=== PATIENT | female | born 1950 | race African-American/Black ===

== ENCOUNTER 2018-12-20 17:57 | Inpatient (IN) | payer MEDICARE, MEDICAID ==
[~2018-12-20] VITALS: Ht 170.2 cm; Wt 72.6 kg
[~2018-12-20 17:57] MED LIST: AMLO10TA80 PO; ASPI-1160 PO; ATEN-42 PO; CLOP75TA33 PO; FERR-35 PO; FURO40TA5 PO; GABA-529 PO; HYDR-4001 PO; LEVE500T78 PO; LISI40TA4 PO; OMEP20CA10 PO
[2018-12-20] MEDS ORDERED: SODIUM CHLORIDE 0.9% 1,000 ML IV ONE (18:21)
[2018-12-20] MEDS ORDERED: ASPIRIN 81MG TABLET PO ONE (18:30)
[2018-12-20 19:06] LABS: BASOPHILS % 0.4 % (0.0-2.0); EOSINOPHILS % 1.2 % (0.0-5.0); HEMATOCRIT. 34.1 % (36.0-48.0); HEMOGLOBIN. 11.5 g/dL (12.0-16.0); LYMPHOCYTES % 28.3 % (20.0-50.0); MEAN CORPUSCULAR HEMOGLOBIN 32.4 pg (28.0-32.0); MEAN PLATELET VOLUME 7.8 fl (7.4-10.4); MONOCYTES % 10.9 % (2.0-8.0); NEUTROPHILS % 59.2 % (40.0-76.0); PLATELET 274 x1000/uL (130-400); RED BLOOD CELL COUNT 3.55 mill/uL (4.2-5.4); RED CELL DISTRIBUTION WIDTH 14.5 % (11.6-14.6)
[2018-12-20 19:13] LABS: CHLORIDE 103 mEq/L (98-107)
[2018-12-20 19:18] LABS: D-DIMER 0.37 mg/L FEU (<0.50); INR 1.1; PARTIAL THROMBOPLASTIN TIME 32.3 sec (23.4-31.0); PROTHROMBIN TIME 10.9 sec (9.1-11.1)
[2018-12-20] MEDS ORDERED: DOCUSATE SODIUM 100MG CAPSULE PO PRN (20:45)
[2018-12-20] MEDS ORDERED: IPRATROPIUM/ALBUTEROL 0.5-3(2.5)MG/3ML NEB INH PRN (20:45)
[2018-12-20] MEDS ORDERED: ONDANSETRON HCL 4MG/2ML INJ IV PRN (20:45)
[2018-12-20] MEDS ORDERED: MAGNESIUM/ALUMINUM HYDROXIDE/SIMETHICONE 30ML UDC PO PRN (20:45)
[2018-12-20] MEDS ORDERED: ACETAMINOPHEN 325MG TABLET PO PRN (20:45)
[2018-12-20] MEDS ORDERED: CLONIDINE 0.1MG TABLET PO PRN (20:45)
[2018-12-20] MEDS ORDERED: HYDROMORPHONE HCL/PF 2MG/ML CPJ IV PRN (21:15)
[2018-12-20] MEDS: HYDROCODONE/ACETAMINOPHEN 5/325MG TABLET PO PRN (21:30)
[2018-12-20 23:21] LABS: CREATINE KINASE 82 IU/L (26-192)
[2018-12-21 01:47] VITALS: BP 96/56
[2018-12-21 04:00] VITALS: BP 94/53
[2018-12-21 07:43] LABS: CHLORIDE 109 mEq/L (98-107)
[2018-12-21 07:55] LABS: LDL CHOLESTEROL 59 mg/dL (5-100)
[2018-12-21 07:57] LABS: HDL CHOLESTEROL 50 mg/dL (40-59)
[2018-12-21 08:00] VITALS: BP 135/62
[2018-12-21 08:10] LABS: CREATINE KINASE 80 IU/L (26-192)
[2018-12-21 08:12] LABS: CREATINE KINASE MB FRACTION < 1.0 ng/mL (0.5-3.6)
[2018-12-21] MEDS: ENOXAPARIN 40MG/0.4ML SYR SUBCUT SCH (09:00)
[2018-12-21 09:57] LABS: BASOPHILS % 0.3 % (0.0-2.0); EOSINOPHILS % 1.5 % (0.0-5.0); HEMATOCRIT. 29.1 % (36.0-48.0); HEMOGLOBIN. 9.9 g/dL (12.0-16.0); MEAN CORPUSCULAR HEMOGLOBIN 32.8 pg (28.0-32.0); MEAN CORPUSCULAR VOLUME 96.6 fL (81.0-99.0); MEAN PLATELET VOLUME 8.5 fl (7.4-10.4); MONOCYTES % 12.5 % (2.0-8.0); NEUTROPHILS % 53.7 % (40.0-76.0); PLATELET 229 x1000/uL (130-400); RED BLOOD CELL COUNT 3.01 mill/uL (4.2-5.4); RED CELL DISTRIBUTION WIDTH 14.1 % (11.6-14.6)
[2018-12-21] MEDS: HYDROCODONE/ACETAMINOPHEN 5/325MG TABLET PO PRN ×3 (11:01→20:37)
[2018-12-21 12:00] VITALS: BP 171/55
[2018-12-21] MEDS ORDERED: POTASSIUM CHLORIDE 20MEQ/PACKET PO SCH (14:15)
[2018-12-21] MEDS: FUROSEMIDE 40MG/4ML VIAL IV SCH ×2 (14:28→20:40)
[2018-12-21] MEDS: LISINOPRIL 20MG TABLET PO SCH (14:28)
[2018-12-21 16:00] VITALS: BP 113/70
[2018-12-21 20:01] VITALS: BP 120/60
[2018-12-22 00:08] VITALS: BP 130/81
[2018-12-22 04:00] VITALS: BP 146/82
[2018-12-22 06:17] LABS: BASOPHILS % 0.8 % (0.0-2.0); EOSINOPHILS % 1.4 % (0.0-5.0); HEMATOCRIT. 31.4 % (36.0-48.0); HEMOGLOBIN. 10.7 g/dL (12.0-16.0); LYMPHOCYTES % 33.8 % (20.0-50.0); MEAN CORPUSCULAR HEMOGLOBIN 32.5 pg (28.0-32.0); MEAN CORPUSCULAR VOLUME 95.3 fL (81.0-99.0); MEAN PLATELET VOLUME 8.4 fl (7.4-10.4); MONOCYTES % 13.7 % (2.0-8.0); NEUTROPHILS % 50.3 % (40.0-76.0); PLATELET 251 x1000/uL (130-400); RED BLOOD CELL COUNT 3.29 mill/uL (4.2-5.4); RED CELL DISTRIBUTION WIDTH 13.9 % (11.6-14.6)
[2018-12-22 07:38] LABS: CHLORIDE 108 mEq/L (98-107)
[2018-12-22 07:58] LABS: LDL CHOLESTEROL 60 mg/dL (5-100)
[2018-12-22 07:59] LABS: CREATINE KINASE 75 IU/L (26-192); CREATINE KINASE MB FRACTION < 1.0 ng/mL (0.5-3.6); HDL CHOLESTEROL 49 mg/dL (40-59)
[2018-12-22 08:00] VITALS: BP 119/84
[2018-12-22] MEDS ORDERED: AMLODIPINE 10MG TABLET PO SCH (09:00)
[2018-12-22] MEDS: FUROSEMIDE 40MG/4ML VIAL IV SCH (09:39)
[2018-12-22] MEDS: LISINOPRIL 20MG TABLET PO SCH (09:39)
[2018-12-22] MEDS: ENOXAPARIN 40MG/0.4ML SYR SUBCUT SCH (09:39)
[2018-12-22] MEDS: HYDROCODONE/ACETAMINOPHEN 5/325MG TABLET PO PRN (10:01)
[2018-12-22 12:00] VITALS: BP 102/69
[2018-12-22 14:54] VITALS: BP 102/69
== END 2018-12-22 15:30 | disposition home health service (06) | DRG 203 ==
LOC: ER 17:57 → 6WST 20:02 → SUPCPDRO 20:38 → ENRESERV 22:29 → UNDODISIN 12-21 18:50
PROVIDERS: ADMIT Hospitalist; ATTEND Hospitalist
DX: M94.0 Chondrocostal junction syndrome [Tietze] (principal); I95.9 Hypotension, unspecified; G62.9 Polyneuropathy, unspecified; R07.89 Other chest pain; I25.10 Atherosclerotic heart disease of native coronary artery without angina pectoris; I35.0 Nonrheumatic aortic (valve) stenosis; B19.20 Unspecified viral hepatitis C without hepatic coma; I10 Essential (primary) hypertension; D64.9 Anemia, unspecified; G40.909 Epilepsy, unspecified, not intractable, without status epilepticus; Z86.73 Personal history of transient ischemic attack (TIA), and cerebral infarction without residual deficits; Z95.5 Presence of coronary angioplasty implant and graft; Z79.899 Other long term (current) drug therapy; Z79.82 Long term (current) use of aspirin
CPT/HCPCS: 36415; 71045; 73030; 80061; 82550; 82553; 83735; 83880; 84443; 84484; 85379; 93005; 93306; 93970; 96360; 99285; J1650; J1940; J7030

== ENCOUNTER 2019-04-09 18:29 | Inpatient (IN) | payer MEDICARE, MEDICAID ==
[~2019-04-09] VITALS: Ht 167.6 cm; Wt 68.0 kg
[~2019-04-09 18:29] MED LIST changes: -LEVE500T78 PO; +LEVE500T98 PO; -OMEP20CA10 PO; +OMEP20CA5 PO
[2019-04-09] MEDS ORDERED: ONDANSETRON HCL 4MG/2ML INJ IV STA (19:01)
[2019-04-09] MEDS ORDERED: MORPHINE SULFATE 4 MG/ML CPJ (NOT FOR IM USE) IV STA (19:01)
[2019-04-09] MEDS ORDERED: ASPIRIN 81MG TABLET PO ONE (19:15)
[2019-04-09 20:03] LABS: CLARITY URINE CLOUDY (CLEAR); COLOR URINE YELLOW (YELLOW); KETONES URINE NEGATIVE (NEGATIVE); LEUKOCYTE ESTERASE URINE 3+ (NEGATIVE); NITRITE URINE POSITIVE (NEGATIVE); OCCULT BLOOD URINE TRACE (NEGATIVE); PH URINE 6.5 (4.5-8.0); PROTEIN URINE NEGATIVE (NEGATIVE); SPECIFIC GRAVITY URINE 1.019 (1.005-1.030)
[2019-04-09 20:08] LABS: BASOPHILS % 0.8 % (0.0-2.0); HEMATOCRIT. 28.4 % (36.0-48.0); HEMOGLOBIN. 9.2 g/dL (12.0-16.0); LYMPHOCYTES % 34.8 % (20.0-50.0); MEAN CORPUSCULAR HEMOGLOBIN 27.8 pg (28.0-32.0); MEAN CORPUSCULAR VOLUME 85.5 fL (81.0-99.0); MEAN PLATELET VOLUME 8.6 fl (7.4-10.4); MONOCYTES % 11.3 % (2.0-8.0); NEUTROPHILS % 49.1 % (40.0-76.0); PLATELET 214 x1000/uL (130-400); RED BLOOD CELL COUNT 3.32 mill/uL (4.2-5.4); RED CELL DISTRIBUTION WIDTH 15.2 % (11.6-14.6)
[2019-04-09 20:13] LABS: CHLORIDE 108 mEq/L (98-107)
[2019-04-09 20:18] LABS: D-DIMER 0.73 mg/L FEU (<0.50); PARTIAL THROMBOPLASTIN TIME 30.3 sec (23.4-31.0); PROTHROMBIN TIME 10.7 sec (9.6-11.0)
[2019-04-09] MEDS ORDERED: CEFTRIAXONE 1 G PREMIX 50 ML IV ONE (20:30)
[2019-04-09] MEDS ORDERED: MORPHINE SULFATE 4 MG/ML CPJ (NOT FOR IM USE) IV ONE (23:45)
[2019-04-09] MEDS ORDERED: ONDANSETRON HCL 4MG/2ML INJ IV ONE (23:45)
[2019-04-10] MEDS ORDERED: DOCUSATE SODIUM 100MG CAPSULE PO PRN (01:15)
[2019-04-10] MEDS ORDERED: CLONIDINE 0.1MG TABLET PO PRN (01:15)
[2019-04-10] MEDS ORDERED: IPRATROPIUM/ALBUTEROL 0.5-3(2.5)MG/3ML NEB INH PRN (01:15)
[2019-04-10] MEDS ORDERED: ACETAMINOPHEN 325MG TABLET PO PRN (01:15)
[2019-04-10] MEDS ORDERED: ONDANSETRON HCL 4MG/2ML INJ IV PRN (01:15)
[2019-04-10] MEDS ORDERED: MAGNESIUM/ALUMINUM HYDROXIDE/SIMETHICONE 30ML UDC PO PRN (01:15)
[2019-04-10 01:29] VITALS: BP 133/78
[2019-04-10 04:00] VITALS: BP 138/83
[2019-04-10 06:00] LABS: CHLORIDE 111 mEq/L (98-107)
[2019-04-10 06:08] LABS: CREATINE KINASE 69 IU/L (26-192)
[2019-04-10 06:10] LABS: CREATINE KINASE MB FRACTION < 1.0 ng/mL (0.5-3.6)
[2019-04-10 06:29] LABS: BASOPHILS % 1.2 % (0.0-2.0); EOSINOPHILS % 5.6 % (0.0-5.0); HEMATOCRIT. 26.7 % (36.0-48.0); HEMOGLOBIN. 8.6 g/dL (12.0-16.0); LYMPHOCYTES % 35.5 % (20.0-50.0); MEAN CORPUSCULAR HEMOGLOBIN 27.9 pg (28.0-32.0); MEAN CORPUSCULAR VOLUME 86.6 fL (81.0-99.0); MEAN PLATELET VOLUME 9.1 fl (7.4-10.4); MONOCYTES % 11.7 % (2.0-8.0); PLATELET 202 x1000/uL (130-400); RED BLOOD CELL COUNT 3.08 mill/uL (4.2-5.4); RED CELL DISTRIBUTION WIDTH 15.4 % (11.6-14.6)
[2019-04-10 08:00] VITALS: BP 149/80
[2019-04-10] MEDS: ENOXAPARIN 40MG/0.4ML SYR SUBCUT SCH (09:08)
[2019-04-10] MEDS: HYDROCODONE/ACETAMINOPHEN 5/325MG TABLET PO PRN ×2 (09:09→20:38)
[2019-04-10] MEDS ORDERED: MORPHINE SULFATE 2 MG/ML CPJ (NOT FOR IM USE) IV PRN (09:15)
[2019-04-10 12:00] VITALS: BP 119/60
[2019-04-10 15:07] LABS: *AMPHETAMINES SCREEN URINE NEGATIVE (NEGATIVE); *BARBITURATES SCREEN URINE NEGATIVE (NEGATIVE); *BENZODIAZEPINES SCREEN URINE NEGATIVE (NEGATIVE); *COCAINE SCREEN URINE NEGATIVE (NEGATIVE); METHADONE URINE SCREEN NEGATIVE (NEGATIVE); OPIATES URINE SCREEN PRESUMTIVE POSITIVE (NEGATIVE)
[2019-04-10 15:08] LABS: CANNABINOID URINE SCREEN NEGATIVE (NEGATIVE); PHENCYCLIDINE URINE SCREEN NEGATIVE (NEGATIVE)
[2019-04-10] MEDS: ASPIRIN 81MG EC TABLET PO SCH ×2 (15:15→16:49)
[2019-04-10 16:00] VITALS: BP 127/65
[2019-04-10 16:23] LABS: CREATINE KINASE 62 IU/L (26-192)
[2019-04-10 16:25] LABS: CREATINE KINASE MB FRACTION < 1.0 ng/mL (0.5-3.6)
[2019-04-10] MEDS: MORPHINE SULFATE 4 MG/ML CPJ (NOT FOR IM USE) IV PRN ×2 (16:48→22:56)
[2019-04-10] MEDS: CLOPIDOGREL 75MG TABLET PO SCH (16:49)
[2019-04-10 17:21] LABS: TOTAL IRON BINDING CAPACITY 573 ug/dL (250-450)
[2019-04-10] MEDS ORDERED: CEFTRIAXONE 1 G PREMIX 50 ML IV SCH ×2 (18:00→21:00)
[2019-04-10 20:00] VITALS: BP 143/74
[2019-04-10] MEDS: LISINOPRIL 20MG TABLET PO SCH (20:36)
[2019-04-11] VITALS: BP 134/62
[2019-04-11 04:00] VITALS: BP 147/68
[2019-04-11] MEDS: MORPHINE SULFATE 4 MG/ML CPJ (NOT FOR IM USE) IV PRN ×2 (06:25→13:27)
[2019-04-11 07:02] LABS: BASOPHILS % 1.5 % (0.0-2.0); HEMOGLOBIN. 8.9 g/dL (12.0-16.0); LYMPHOCYTES % 32.3 % (20.0-50.0); MEAN CORPUSCULAR HEMOGLOBIN 26.8 pg (28.0-32.0); MEAN CORPUSCULAR VOLUME 84.7 fL (81.0-99.0); MEAN PLATELET VOLUME 8.9 fl (7.4-10.4); MONOCYTES % 14.4 % (2.0-8.0); NEUTROPHILS % 46.8 % (40.0-76.0); PLATELET 213 x1000/uL (130-400); RED CELL DISTRIBUTION WIDTH 15.3 % (11.6-14.6)
[2019-04-11 07:05] LABS: CHLORIDE 110 mEq/L (98-107)
[2019-04-11 07:11] LABS: LDL CHOLESTEROL 65 mg/dL (5-100)
[2019-04-11 07:13] LABS: HDL CHOLESTEROL 36 mg/dL (40-59)
[2019-04-11 08:00] VITALS: BP 167/89
[2019-04-11] MEDS ORDERED: AMLODIPINE 10MG TABLET PO SCH (09:00)
[2019-04-11] MEDS ORDERED: ATENOLOL 50 MG TABLET PO SCH (09:00)
[2019-04-11] MEDS: ASPIRIN 81MG EC TABLET PO SCH (09:13)
[2019-04-11] MEDS: CLOPIDOGREL 75MG TABLET PO SCH (09:13)
[2019-04-11] MEDS: LISINOPRIL 20MG TABLET PO SCH (09:14)
[2019-04-11] MEDS: ENOXAPARIN 40MG/0.4ML SYR SUBCUT SCH (09:14)
[2019-04-11] MEDS ORDERED: ATENOLOL 25MG TABLET PO SCH (09:30)
[2019-04-11 12:00] VITALS: BP 149/86
[2019-04-11 16:00] VITALS: BP 129/73
[2019-04-11] MEDS ORDERED: ATEN-42 PO (16:39)
[2019-04-11] MEDS ORDERED: NITR100C MT (16:39)
[2019-04-11 17:44] VITALS: BP 129/73
== END 2019-04-11 18:18 | disposition home or self-care (01) | DRG 463 ==
LOC: ER 18:29 → 7WST 21:46 → EDBEDREQ 21:52 → EDBEDREQTM 21:52 → ENRESERV 04-10 00:27
PROVIDERS: ADMIT Internal Medicine; ATTEND Internal Medicine
DX: N39.0 Urinary tract infection, site not specified (principal); E87.8 Other disorders of electrolyte and fluid balance, not elsewhere classified; I69.354 Hemiplegia and hemiparesis following cerebral infarction affecting left non-dominant side; R07.9 Chest pain, unspecified; B19.20 Unspecified viral hepatitis C without hepatic coma; I11.9 Hypertensive heart disease without heart failure; B96.20 Unspecified Escherichia coli [E. coli] as the cause of diseases classified elsewhere; G89.29 Other chronic pain; M25.512 Pain in left shoulder; D64.9 Anemia, unspecified; D50.9 Iron deficiency anemia, unspecified; E78.5 Hyperlipidemia, unspecified; E87.6 Hypokalemia; G40.909 Epilepsy, unspecified, not intractable, without status epilepticus; G62.9 Polyneuropathy, unspecified; I25.10 Atherosclerotic heart disease of native coronary artery without angina pectoris; Z82.49 Family history of ischemic heart disease and other diseases of the circulatory system; Z95.0 Presence of cardiac pacemaker; Z95.2 Presence of prosthetic heart valve; Z79.899 Other long term (current) drug therapy; Z79.82 Long term (current) use of aspirin
CPT/HCPCS: 36415; 71045; 78582; 80048; 80061; 80305; 82550; 82553; 82728; 83540; 83550; 83605; 83735; 83880; 84443; 84484; 85379; 87077; 87186; 93005; 93306; 93970; 96365; 96375; 99285; A9558; J0696; J1650; J2270; J2405

== ENCOUNTER 2019-07-02 19:03 | Inpatient (IN) | payer MEDICARE, MEDICAID ==
[~2019-07-02] VITALS: Ht 170.2 cm; Wt 69.9 kg
[~2019-07-02 19:03] MED LIST changes: +NITR100C MT
[2019-07-02 19:54] LABS: BASOPHILS % 0.7 % (0.0-2.0); EOSINOPHILS % 2.4 % (0.0-5.0); HEMATOCRIT. 31.7 % (36.0-48.0); HEMOGLOBIN. 10.1 g/dL (12.0-16.0); LYMPHOCYTES % 35.3 % (20.0-50.0); MEAN CORPUSCULAR HEMOGLOBIN 27.2 pg (28.0-32.0); MEAN CORPUSCULAR VOLUME 85.3 fL (81.0-99.0); MEAN PLATELET VOLUME 8.7 fl (7.4-10.4); MONOCYTES % 10.9 % (2.0-8.0); NEUTROPHILS % 50.7 % (40.0-76.0); PLATELET 281 x1000/uL (130-400); RED BLOOD CELL COUNT 3.72 mill/uL (4.2-5.4); RED CELL DISTRIBUTION WIDTH 18.8 % (11.6-14.6)
[2019-07-02 19:58] LABS: CHLORIDE 103 mEq/L (98-107)
[2019-07-02] MEDS ORDERED: KETOROLAC 15MG/ML VIAL IV ONE (21:30)
[2019-07-02] MEDS ORDERED: POTASSIUM CHLORIDE 20MEQ TABLET SR PO SCH (21:30)
[2019-07-02] MEDS ORDERED: MORPHINE SULFATE 4 MG/ML CPJ (NOT FOR IM USE) IV ONE (21:30)
[2019-07-02] MEDS ORDERED: ASPIRIN 325MG TABLET PO ONE (22:45)
[2019-07-02 23:45] VITALS: BP 140/61
[2019-07-02 23:50] VITALS: BP 140/61
[2019-07-03] MEDS: MORPHINE SULFATE 2 MG/ML CPJ (NOT FOR IM USE) IV PRN ×5 (01:34→20:52)
[2019-07-03 04:00] VITALS: BP 124/66
[2019-07-03] MEDS ORDERED: HYDROCODONE/ACETAMINOPHEN 5/325MG TABLET PO PRN (05:15)
[2019-07-03] MEDS: OMEPRAZOLE 20MG CAPSULE EXTENDED RELEASE PO SCH (06:27)
[2019-07-03 08:00] VITALS: BP 115/67
[2019-07-03] MEDS: FERROUS SULFATE 325MG TABLET PO SCH ×3 (08:03→17:31)
[2019-07-03] MEDS: GABAPENTIN 100MG CAPSULE PO SCH (08:25)
[2019-07-03] MEDS: CLOPIDOGREL 75MG TABLET PO SCH (08:25)
[2019-07-03] MEDS: ASPIRIN 81MG TABLET PO SCH (08:25)
[2019-07-03] MEDS: ENOXAPARIN 40MG/0.4ML SYR SUBCUT SCH (08:25)
[2019-07-03] MEDS: FUROSEMIDE 40MG TABLET PO SCH ×2 (08:25→21:19)
[2019-07-03] MEDS: LEVETIRACETAM 500MG TABLET PO SCH ×2 (08:26→21:19)
[2019-07-03] MEDS: LISINOPRIL 40MG TABLET PO SCH (08:26)
[2019-07-03] MEDS ORDERED: AMLODIPINE 10MG TABLET PO SCH (09:00)
[2019-07-03 09:12] LABS: *AMPHETAMINES SCREEN URINE NEGATIVE (NEGATIVE); *BARBITURATES SCREEN URINE NEGATIVE (NEGATIVE)
[2019-07-03 09:13] LABS: *BENZODIAZEPINES SCREEN URINE NEGATIVE (NEGATIVE); *COCAINE SCREEN URINE NEGATIVE (NEGATIVE); METHADONE URINE SCREEN NEGATIVE (NEGATIVE)
[2019-07-03 09:14] LABS: CANNABINOID URINE SCREEN NEGATIVE (NEGATIVE); OPIATES URINE SCREEN PRESUMTIVE POSITIVE (NEGATIVE); PHENCYCLIDINE URINE SCREEN NEGATIVE (NEGATIVE)
[2019-07-03 10:32] LABS: BASOPHILS % 0.7 % (0.0-2.0); EOSINOPHILS % 2.1 % (0.0-5.0); HEMATOCRIT. 29.3 % (36.0-48.0); HEMOGLOBIN. 9.2 g/dL (12.0-16.0); LYMPHOCYTES % 35.7 % (20.0-50.0); MEAN CORPUSCULAR HEMOGLOBIN 27.4 pg (28.0-32.0); MEAN CORPUSCULAR VOLUME 87.3 fL (81.0-99.0); MEAN PLATELET VOLUME 8.3 fl (7.4-10.4); MONOCYTES % 10.6 % (2.0-8.0); NEUTROPHILS % 50.9 % (40.0-76.0); PLATELET 235 x1000/uL (130-400); RED BLOOD CELL COUNT 3.35 mill/uL (4.2-5.4); RED CELL DISTRIBUTION WIDTH 18.4 % (11.6-14.6)
[2019-07-03 10:44] LABS: CHLORIDE 108 mEq/L (98-107)
[2019-07-03 11:02] LABS: CREATINE KINASE 62 IU/L (26-192); LDL CHOLESTEROL 63 mg/dL (5-100)
[2019-07-03 11:05] LABS: HDL CHOLESTEROL 34 mg/dL (40-59)
[2019-07-03 11:09] LABS: CREATINE KINASE MB FRACTION 1.7 ng/mL (0.5-3.6)
[2019-07-03 12:00] VITALS: BP 111/60
[2019-07-03] MEDS ORDERED: POTASSIUM CHLORIDE 20MEQ/PACKET PO NR (13:00)
[2019-07-03 15:57] LABS: TOTAL IRON BINDING CAPACITY 523 ug/dL (250-450)
[2019-07-03 15:59] LABS: CREATINE KINASE 63 IU/L (26-192)
[2019-07-03 16:00] VITALS: BP 97/54
[2019-07-03 16:00] LABS: CREATINE KINASE MB FRACTION 1.3 ng/mL (0.5-3.6)
[2019-07-03 20:51] VITALS: BP 104/61
[2019-07-03] MEDS ORDERED: ATORVASTATIN CALCIUM 40MG TABLET PO SCH (21:00)
[2019-07-03] MEDS: METOPROLOL TARTRATE 25MG TABLET PO SCH (21:00)
[2019-07-04] VITALS: BP 103/50
[2019-07-04] MEDS: MORPHINE SULFATE 2 MG/ML CPJ (NOT FOR IM USE) IV PRN ×2 (01:20→05:57)
[2019-07-04 04:00] VITALS: BP 110/74
[2019-07-04] MEDS: FERROUS SULFATE 325MG TABLET PO SCH (06:15)
[2019-07-04] MEDS: OMEPRAZOLE 20MG CAPSULE EXTENDED RELEASE PO SCH (06:15)
[2019-07-04 08:00] VITALS: BP 109/68
[2019-07-04] MEDS: METOPROLOL TARTRATE 25MG TABLET PO SCH (08:22)
[2019-07-04] MEDS: CLOPIDOGREL 75MG TABLET PO SCH (08:24)
[2019-07-04] MEDS: ENOXAPARIN 40MG/0.4ML SYR SUBCUT SCH (08:24)
[2019-07-04] MEDS: LISINOPRIL 40MG TABLET PO SCH (08:24)
[2019-07-04] MEDS: LEVETIRACETAM 500MG TABLET PO SCH (08:25)
[2019-07-04] MEDS: GABAPENTIN 100MG CAPSULE PO SCH (08:25)
[2019-07-04] MEDS: FUROSEMIDE 40MG TABLET PO SCH (08:25)
[2019-07-04] MEDS: ASPIRIN 81MG TABLET PO SCH (08:25)
[2019-07-04] MEDS ORDERED: AMLODIPINE 5MG TABLET PO SCH (09:00)
[2019-07-04] MEDS ORDERED: POTASSIUM CHLORIDE 20MEQ TABLET SR PO NR (11:45)
[2019-07-04] MEDS ORDERED: MAGNESIUM 2 G PREMIX 50 ML IV NR (13:00)
== END 2019-07-04 10:10 | disposition left against medical advice (07) | DRG 207 ==
LOC: ER 19:03 → 5WST 22:40 → EDBEDREQTM 22:43 → EDBEDREQ 22:43 → ENRESERV 23:14
PROVIDERS: ADMIT Internal Medicine; ATTEND Internal Medicine
DX: R00.2 Palpitations (principal); I27.20 Pulmonary hypertension, unspecified; I69.354 Hemiplegia and hemiparesis following cerebral infarction affecting left non-dominant side; J44.9 Chronic obstructive pulmonary disease, unspecified; B19.20 Unspecified viral hepatitis C without hepatic coma; K74.60 Unspecified cirrhosis of liver; D64.9 Anemia, unspecified; E87.6 Hypokalemia; Z96.641 Presence of right artificial hip joint; R73.9 Hyperglycemia, unspecified; Z53.29 Procedure and treatment not carried out because of patient's decision for other reasons; I10 Essential (primary) hypertension; I25.10 Atherosclerotic heart disease of native coronary artery without angina pectoris; Z87.891 Personal history of nicotine dependence; Z95.5 Presence of coronary angioplasty implant and graft; Z95.810 Presence of automatic (implantable) cardiac defibrillator; Z79.899 Other long term (current) drug therapy; Z79.82 Long term (current) use of aspirin; Z98.891 History of uterine scar from previous surgery
CPT/HCPCS: 36415; 71045; 73502; 80048; 80061; 80305; 82550; 82553; 82728; 83036; 83540; 83550; 83735; 83880; 84443; 84484; 93005; 93306; 93970; 96374; 96375; 99285; J1650; J1885; J2270; J3475

== ENCOUNTER 2021-08-04 13:16 | Inpatient (IN) | payer MEDICARE, OTHER ==
[~2021-08-04] VITALS: Ht 170.2 cm; Wt 84.8 kg
[~2021-08-04 13:16] MED LIST changes: +LISI40TA13 PO; -LISI40TA4 PO; +OMEP20CA14 PO; -OMEP20CA5 PO
[2021-08-04 14:43] LABS: BG BASE EXCESS -2.6 mmol/L (-2.0-2.0); BG CARBOXYHEMOGLOBIN 0.4 % (0.5-1.5); BG DEOXYHEMOGLOBIN 2.8 % (0.0-5.0); BG FRACTION INSPIRED OXYGEN 21; BG HCO3 ACT 21.1 mmol/L (22.0-26.0); BG METHEMOGLOBIN 0.2 % (0.0-1.5); BG OXYGEN SATURATION 97.2 % (92.0-98.5); BG OXYHEMOGLOBIN 96.6 % (94.0-97.0); BG PH 7.424 (7.350-7.450); BG PO2 99.5 mmHg (75.0-100.0); BG SAMPLE SITE LEFT RADIAL; BG TOTAL HEMOGLOBIN 10.9 g/dL (12.0-18.0); BG VENT MODE ROOM AIR
[2021-08-04] MEDS ORDERED: MORPHINE SULFATE 4 MG/ML CPJ (NOT FOR IM USE) IV NR (14:45)
[2021-08-04 14:48] LABS: BASOPHILS % 0.7 % (0.0-2.0); EOSINOPHILS % 1.2 % (0.0-5.0); HEMATOCRIT. 30.1 % (36.0-48.0); HEMOGLOBIN. 9.5 g/dL (12.0-16.0); LYMPHOCYTES % 21.5 % (20.0-50.0); MEAN CORPUSCULAR HEMOGLOBIN 26.2 pg (28.0-32.0); MEAN CORPUSCULAR VOLUME 83.2 fL (81.0-99.0); MEAN PLATELET VOLUME 7.8 fl (7.4-10.4); MONOCYTES % 6.2 % (2.0-8.0); NEUTROPHILS % 70.4 % (40.0-76.0); PLATELET 293 x1000/uL (130-400); RED BLOOD CELL COUNT 3.62 mill/uL (4.2-5.4); RED CELL DISTRIBUTION WIDTH 17.8 % (11.6-14.6)
[2021-08-04 14:51] LABS: CHLORIDE 111 mEq/L (98-107)
[2021-08-04] MEDS ORDERED: DIPHENHYDRAMINE 50MG/ML VIAL IV PRN (20:15)
[2021-08-04] MEDS ORDERED: MAGNESIUM/ALUMINUM HYDROXIDE/SIMETHICONE 30ML UDC PO PRN (20:15)
[2021-08-04] MEDS ORDERED: HYDRALAZINE 20MG/ML VIAL IV PRN (20:15)
[2021-08-04] MEDS ORDERED: CLONIDINE 0.1MG TABLET PO PRN (20:15)
[2021-08-04] MEDS ORDERED: GUAIFENESIN 200MG/10ML SUGAR FREE UDC PO PRN (20:15)
[2021-08-04] MEDS ORDERED: IPRATROPIUM/ALBUTEROL 0.5-3(2.5)MG/3ML NEB HHN PRN (20:15)
[2021-08-04] MEDS ORDERED: DOCUSATE SODIUM 100MG CAPSULE PO PRN (20:15)
[2021-08-04] MEDS ORDERED: ONDANSETRON HCL 4MG/2ML INJ IV PRN (20:15)
[2021-08-04] MEDS ORDERED: ACETAMINOPHEN 325MG TABLET PO PRN (20:15)
[2021-08-04] MEDS ORDERED: NALOXONE HCL 0.4MG/ML VIAL IV PRN (20:30)
[2021-08-04] MEDS ORDERED: ENOXAPARIN 40MG/0.4ML SYR SUBCUT SCH (21:00)
[2021-08-04] MEDS: MORPHINE SULFATE 2 MG/ML CPJ (NOT FOR IM USE) IV PRN (21:03)
[2021-08-04] MEDS: SODIUM CHLORIDE 0.9% INJ 3ML FLUSH IVF SCH (21:47)
[2021-08-04 23:42] LABS: CLARITY URINE CLEAR (CLEAR); COLOR URINE YELLOW (YELLOW); KETONES URINE NEGATIVE (NEGATIVE); LEUKOCYTE ESTERASE URINE 3+ (NEGATIVE); NITRITE URINE NEGATIVE (NEGATIVE); OCCULT BLOOD URINE NEGATIVE (NEGATIVE); PH URINE 7.5 (4.5-8.0); PROTEIN URINE TRACE (NEGATIVE); SPECIFIC GRAVITY URINE 1.014 (1.005-1.030)
[2021-08-05 00:07] LABS: *AMPHETAMINES SCREEN URINE NEGATIVE (NEGATIVE); *BARBITURATES SCREEN URINE NEGATIVE (NEGATIVE); *BENZODIAZEPINES SCREEN URINE PRESUMTIVE POSITIVE (NEGATIVE); *COCAINE SCREEN URINE NEGATIVE (NEGATIVE)
[2021-08-05 00:08] LABS: CANNABINOID URINE SCREEN NEGATIVE (NEGATIVE); METHADONE URINE SCREEN NEGATIVE (NEGATIVE); OPIATES URINE SCREEN PRESUMTIVE POSITIVE (NEGATIVE); PHENCYCLIDINE URINE SCREEN NEGATIVE (NEGATIVE)
[2021-08-05] MEDS: MORPHINE SULFATE 2 MG/ML CPJ (NOT FOR IM USE) IV PRN ×4 (03:04→23:54)
[2021-08-05] MEDS: SODIUM CHLORIDE 0.9% INJ 3ML FLUSH IVF SCH ×3 (06:55→23:54)
[2021-08-05 08:00] VITALS: BP 144/98
[2021-08-05 09:25] LABS: BASOPHILS % 0.6 % (0.0-2.0); CHLORIDE 111 mEq/L (98-107); EOSINOPHILS % 1.9 % (0.0-5.0); HEMATOCRIT. 30.8 % (36.0-48.0); HEMOGLOBIN. 9.7 g/dL (12.0-16.0); LYMPHOCYTES % 24.9 % (20.0-50.0); MEAN CORPUSCULAR HEMOGLOBIN 26.5 pg (28.0-32.0); MEAN CORPUSCULAR VOLUME 83.8 fL (81.0-99.0); MEAN PLATELET VOLUME 7.8 fl (7.4-10.4); MONOCYTES % 7.8 % (2.0-8.0); NEUTROPHILS % 64.8 % (40.0-76.0); PLATELET 295 x1000/uL (130-400); RED BLOOD CELL COUNT 3.68 mill/uL (4.2-5.4); RED CELL DISTRIBUTION WIDTH 18.3 % (11.6-14.6)
[2021-08-05 09:36] LABS: CREATINE KINASE 67 IU/L (26-192)
[2021-08-05 09:39] LABS: CREATINE KINASE MB FRACTION 2.3 ng/mL (0.5-3.6)
[2021-08-05 10:00] VITALS: BP 144/98
[2021-08-05 11:31] VITALS: BP 153/97
[2021-08-05 11:32] VITALS: BP 144/97
[2021-08-05] MEDS: FERROUS SULFATE 325MG TABLET PO SCH ×2 (14:09→16:48)
[2021-08-05] MEDS: AMLODIPINE 10MG TABLET PO SCH (14:10)
[2021-08-05] MEDS: HYDROCODONE/ACETAMINOPHEN 5/325MG TABLET PO PRN (14:10)
[2021-08-05] MEDS: GABAPENTIN 100MG CAPSULE PO SCH (14:10)
[2021-08-05] MEDS: OMEPRAZOLE 20MG CAPSULE EXTENDED RELEASE PO SCH (14:11)
[2021-08-05] MEDS: NITROFURANTOIN 100MG M/M CAPSULE PO SCH ×2 (14:11→21:13)
[2021-08-05] MEDS: ASPIRIN 81MG EC TABLET PO SCH (14:11)
[2021-08-05] MEDS: CLOPIDOGREL 75MG TABLET PO SCH (14:11)
[2021-08-05] MEDS: LISINOPRIL 40MG TABLET PO SCH (14:12)
[2021-08-05 16:00] VITALS: BP 120/80
[2021-08-05] MEDS: ATENOLOL 25MG TABLET PO SCH (16:48)
[2021-08-05 20:00] VITALS: BP 166/91
[2021-08-05] MEDS: LEVETIRACETAM 500MG TABLET PO SCH (21:14)
[2021-08-06] MEDS: SODIUM CHLORIDE 0.9% INJ 3ML FLUSH IVF SCH ×3 (06:30→21:00)
[2021-08-06] MEDS: MORPHINE SULFATE 2 MG/ML CPJ (NOT FOR IM USE) IV PRN ×4 (06:35→21:00)
[2021-08-06 08:00] VITALS: BP 114/81
[2021-08-06 08:53] LABS: BASOPHILS % 0.7 % (0.0-2.0); EOSINOPHILS % 1.8 % (0.0-5.0); HEMATOCRIT. 30.1 % (36.0-48.0); HEMOGLOBIN. 9.5 g/dL (12.0-16.0); LYMPHOCYTES % 22.9 % (20.0-50.0); MEAN CORPUSCULAR HEMOGLOBIN 26.4 pg (28.0-32.0); MEAN CORPUSCULAR VOLUME 83.5 fL (81.0-99.0); MEAN PLATELET VOLUME 7.8 fl (7.4-10.4); NEUTROPHILS % 65.6 % (40.0-76.0); PLATELET 309 x1000/uL (130-400); RED CELL DISTRIBUTION WIDTH 18.2 % (11.6-14.6)
[2021-08-06 08:55] LABS: CHLORIDE 112 mEq/L (98-107)
[2021-08-06] MEDS: LISINOPRIL 40MG TABLET PO SCH (09:00)
[2021-08-06] MEDS: OMEPRAZOLE 20MG CAPSULE EXTENDED RELEASE PO SCH (09:17)
[2021-08-06] MEDS: FERROUS SULFATE 325MG TABLET PO SCH ×3 (09:17→17:24)
[2021-08-06] MEDS: GABAPENTIN 100MG CAPSULE PO SCH (09:17)
[2021-08-06] MEDS: ATENOLOL 25MG TABLET PO SCH (09:17)
[2021-08-06] MEDS: NITROFURANTOIN 100MG M/M CAPSULE PO SCH (09:17)
[2021-08-06] MEDS: ASPIRIN 81MG EC TABLET PO SCH (09:18)
[2021-08-06] MEDS: AMLODIPINE 10MG TABLET PO SCH (09:18)
[2021-08-06] MEDS: CLOPIDOGREL 75MG TABLET PO SCH (09:18)
[2021-08-06] MEDS: LEVETIRACETAM 500MG TABLET PO SCH ×2 (09:20→20:59)
[2021-08-06 12:00] VITALS: BP 131/65
[2021-08-06] MEDS ORDERED: CEFTRIAXONE 1 G PREMIX 50 ML IV SCH (12:15)
[2021-08-06] MEDS: HYDROCODONE/ACETAMINOPHEN 5/325MG TABLET PO PRN (12:34)
[2021-08-06] MEDS: CEFTRIAXONE 1,000 MG in DEXTROSE 5% WATER 50 ML IV SCH (14:10)
[2021-08-06 16:00] VITALS: BP 127/76
[2021-08-06 20:00] VITALS: BP 140/78
[2021-08-06] MEDS: FAMOTIDINE 20MG TABLET PO SCH (20:59)
[2021-08-06] MEDS: LORAZEPAM 2MG/ML CPJ IV PRN (21:59)
[2021-08-07 04:00] VITALS: BP 127/62
[2021-08-07] MEDS: LORAZEPAM 2MG/ML CPJ IV PRN ×3 (04:20→20:41)
[2021-08-07] MEDS: SODIUM CHLORIDE 0.9% INJ 3ML FLUSH IVF SCH ×3 (05:54→22:00)
[2021-08-07 06:06] LABS: BASOPHILS % 0.6 % (0.0-2.0); EOSINOPHILS % 2.2 % (0.0-5.0); HEMATOCRIT. 32.2 % (36.0-48.0); HEMOGLOBIN. 10.2 g/dL (12.0-16.0); LYMPHOCYTES % 22.1 % (20.0-50.0); MEAN CORPUSCULAR HEMOGLOBIN 26.6 pg (28.0-32.0); MEAN CORPUSCULAR VOLUME 83.7 fL (81.0-99.0); MEAN PLATELET VOLUME 8.1 fl (7.4-10.4); MONOCYTES % 8.3 % (2.0-8.0); NEUTROPHILS % 66.8 % (40.0-76.0); PLATELET 300 x1000/uL (130-400); RED BLOOD CELL COUNT 3.85 mill/uL (4.2-5.4); RED CELL DISTRIBUTION WIDTH 18.2 % (11.6-14.6)
[2021-08-07 06:32] LABS: CHLORIDE 110 mEq/L (98-107)
[2021-08-07] MEDS: FERROUS SULFATE 325MG TABLET PO SCH ×3 (07:50→16:43)
[2021-08-07 08:00] VITALS: BP 137/68
[2021-08-07] MEDS: LISINOPRIL 40MG TABLET PO SCH (09:00)
[2021-08-07] MEDS: FAMOTIDINE 20MG TABLET PO SCH ×2 (10:15→20:41)
[2021-08-07] MEDS: ATENOLOL 25MG TABLET PO SCH (10:15)
[2021-08-07] MEDS: CLOPIDOGREL 75MG TABLET PO SCH (10:15)
[2021-08-07] MEDS: GABAPENTIN 100MG CAPSULE PO SCH (10:15)
[2021-08-07] MEDS: AMLODIPINE 10MG TABLET PO SCH (10:15)
[2021-08-07] MEDS: MORPHINE SULFATE 2 MG/ML CPJ (NOT FOR IM USE) IV PRN ×2 (10:16→14:50)
[2021-08-07] MEDS: ASPIRIN 81MG EC TABLET PO SCH (10:16)
[2021-08-07] MEDS: LEVETIRACETAM 500MG TABLET PO SCH ×2 (10:16→20:41)
[2021-08-07 12:28] VITALS: BP 123/56
[2021-08-07] MEDS: CEFTRIAXONE 1,000 MG in DEXTROSE 5% WATER 50 ML IV SCH (14:57)
[2021-08-07 16:00] VITALS: BP 137/67
[2021-08-07] MEDS: CEFAZOLIN 1000MG PREMIX 50 ML IV SCH (17:47)
[2021-08-07] MEDS: HYDROCODONE/ACETAMINOPHEN 5/325MG TABLET PO PRN (19:00)
[2021-08-07 20:00] VITALS: BP 125/64
[2021-08-08] VITALS: BP 158/82
[2021-08-08] MEDS: MORPHINE SULFATE 2 MG/ML CPJ (NOT FOR IM USE) IV PRN ×2 (00:36→08:58)
[2021-08-08 04:00] VITALS: BP 119/61
[2021-08-08] MEDS: CEFAZOLIN 1000MG PREMIX 50 ML IV SCH (04:29)
[2021-08-08] MEDS: HYDROCODONE/ACETAMINOPHEN 5/325MG TABLET PO PRN ×2 (05:00→13:58)
[2021-08-08] MEDS: SODIUM CHLORIDE 0.9% INJ 3ML FLUSH IVF SCH ×2 (06:00→13:53)
[2021-08-08] MEDS: FERROUS SULFATE 325MG TABLET PO SCH ×2 (07:50→12:50)
[2021-08-08 08:00] VITALS: BP 136/82
[2021-08-08] MEDS: LISINOPRIL 40MG TABLET PO SCH (08:55)
[2021-08-08] MEDS: FAMOTIDINE 20MG TABLET PO SCH (08:56)
[2021-08-08] MEDS: CLOPIDOGREL 75MG TABLET PO SCH (08:56)
[2021-08-08] MEDS: ASPIRIN 81MG EC TABLET PO SCH (08:56)
[2021-08-08] MEDS: GABAPENTIN 100MG CAPSULE PO SCH (08:56)
[2021-08-08] MEDS: ATENOLOL 25MG TABLET PO SCH (08:57)
[2021-08-08] MEDS: LEVETIRACETAM 500MG TABLET PO SCH (08:57)
[2021-08-08] MEDS: AMLODIPINE 10MG TABLET PO SCH (08:58)
[2021-08-08] MEDS: LORAZEPAM 2MG/ML CPJ IV PRN (09:00)
[2021-08-08 12:00] VITALS: BP 143/85
[2021-08-08] MEDS ORDERED: INFLUENZA VACCINE 05/PF 0.5 ML SYRINGE IM ONE (14:30)
[2021-08-08 15:59] VITALS: BP 143/85
== END 2021-08-08 16:20 | disposition home or self-care (01) | DRG 203 ==
LOC: ER 13:16 → MICUSO 19:19 → EDBEDREQTM 19:28 → EDBEDREQ 19:28 → EDBEDREQTM 20:33 → EDBEDREQ 20:33 → 6WST 08-05 07:21
PROVIDERS: ADMIT Internal Medicine; ATTEND Internal Medicine
DX: M94.0 Chondrocostal junction syndrome [Tietze] (principal); I69.354 Hemiplegia and hemiparesis following cerebral infarction affecting left non-dominant side; I24.8 Other forms of acute ischemic heart disease; I50.22 Chronic systolic (congestive) heart failure; I11.0 Hypertensive heart disease with heart failure; N39.0 Urinary tract infection, site not specified; R07.89 Other chest pain; I25.10 Atherosclerotic heart disease of native coronary artery without angina pectoris; G89.4 Chronic pain syndrome; Z96.649 Presence of unspecified artificial hip joint; M25.519 Pain in unspecified shoulder; Z95.0 Presence of cardiac pacemaker; Z79.82 Long term (current) use of aspirin; Z79.899 Other long term (current) drug therapy; Z98.891 History of uterine scar from previous surgery
CPT/HCPCS: 36415; 36600; 71045; 80048; 80053; 80305; 81003; 82375; 82550; 82553; 82805; 83605; 83735; 83880; 84443; 84484; 85025; 87077; 87186; 90686; 93005; 93306; 93970; 99285; J0690; J0696; J1650; J2060; J2270; J7060

== ENCOUNTER 2021-08-27 19:45 | Inpatient (IN) | payer MEDICARE, OTHER ==
[~2021-08-27] VITALS: Ht 170.2 cm; Wt 80.3 kg
[~2021-08-27 19:45] MED LIST changes: -NITR100C MT
[2021-08-27 20:03] VITALS: BP 151/88
[2021-08-27 20:15] VITALS: BP 161/84
[2021-08-27] MEDS ORDERED: IPRATROPIUM/ALBUTEROL 0.5-3(2.5)MG/3ML NEB HHN PRN (20:15)
[2021-08-27] MEDS ORDERED: ONDANSETRON HCL 4MG/2ML INJ IV PRN (20:15)
[2021-08-27 20:41] LABS: HEMATOCRIT 25.2 % (36.0-48.0); MEAN CORPUSCULAR HEMOGLOBIN 27.1 pg (28.0-32.0); MEAN CORPUSCULAR VOLUME 85.2 fL (81.0-99.0); PLATELET 216 x1000/uL (130-400); RED BLOOD CELL COUNT 2.95 mill/uL (4.2-5.4); RED CELL DISTRIBUTION WIDTH 18.5 % (11.6-14.6)
[2021-08-27 20:46] LABS: CHLORIDE 113 mEq/L (98-107)
[2021-08-27 20:49] LABS: INR 1.1; PROTHROMBIN TIME 11.4 sec (9.6-11.0)
[2021-08-27] MEDS: LEVETIRACETAM 500MG TABLET PO SCH (21:00)
[2021-08-27] MEDS: MORPHINE SULFATE 2 MG/ML CPJ (NOT FOR IM USE) IV PRN (21:00)
[2021-08-27] MEDS: TEMAZEPAM 15MG CAPSULE PO PRN (21:07)
[2021-08-27 22:00] VITALS: BP 140/66
[2021-08-27] MEDS ORDERED: NITROGLYCERIN OINT 1GM/INCH UDPKT TD NR (23:15)
[2021-08-27] MEDS: HYDROCODONE/ACETAMINOPHEN 5/325MG TABLET PO PRN (23:26)
[2021-08-27] MEDS: CLONIDINE 0.1MG TABLET PO PRN (23:38)
[2021-08-28] VITALS (43 sets, daily range): BP systolic 1–171; BP diastolic 0–96
[2021-08-28] MEDS: PANTOPRAZOLE 40MG DR TABLET PO SCH (06:15)
[2021-08-28] MEDS: MORPHINE SULFATE 2 MG/ML CPJ (NOT FOR IM USE) IV PRN ×3 (06:35→18:48)
[2021-08-28] MEDS ORDERED: HEPARIN SODIUM 1,000 UNIT/1ML VIAL IV ONE (08:06)
[2021-08-28] MEDS ORDERED: NITROGLYCERIN 50MCG/ML 10ML VIAL (CATH LAB) IV ONE (08:06)
[2021-08-28] MEDS ORDERED: NICARDIPINE 100MCG/ML 10ML VIAL (CATH LAB) IV ONE (08:06)
[2021-08-28] MEDS: LEVETIRACETAM 500MG TABLET PO SCH ×2 (08:20→21:18)
[2021-08-28] MEDS: AMLODIPINE 5MG TABLET PO SCH (08:20)
[2021-08-28] MEDS: ASPIRIN 81MG TABLET PO SCH (08:20)
[2021-08-28] MEDS ORDERED: LIDOCAINE HCL 1% 10 MG/ML 10ML VIAL ONE (08:41)
[2021-08-28] MEDS ORDERED: IODIXANOL 320MG/ML 100 ML BOTTLE IV ONE ×3 (08:41→12:41)
[2021-08-28] MEDS ORDERED: VERAPAMIL HCL 2.5 MG/1 ML 2ML VIAL IV ONE (08:41)
[2021-08-28] MEDS ORDERED: MIDAZOLAM HCL 2 MG/2 ML VIAL ONE ×7 (09:22→14:21)
[2021-08-28] MEDS ORDERED: FENTANYL CITRATE/PF 50MCG/ML 2ML VIAL ONE ×5 (09:22→14:21)
[2021-08-28] MEDS ORDERED: DIPHENHYDRAMINE 50MG/ML VIAL ONE (09:34)
[2021-08-28] MEDS ORDERED: IOHEXOL-300 100 ML BOTTLE ONE (10:22)
[2021-08-28] MEDS ORDERED: HEPARIN 1000 UNITS/ML 10ML ONE (12:28)
[2021-08-28] MEDS ORDERED: METOPROLOL TARTRATE 5MG/5ML VIAL IV ONE (13:13)
[2021-08-28] MEDS ORDERED: INSULIN REGULAR (DRIP) 100 UNITS in SODIUM CHLORIDE 0.9% 99 ML IV NR (13:30)
[2021-08-28] MEDS ORDERED: NOREPINEPHRINE 8 MG in DEXT 5% WATER 242 ML IV NR (13:30)
[2021-08-28] MEDS ORDERED: DEL NIDO ELECTROLYTE-S(PH 7.4) 1,000 ML IV NR ×2 (13:30)
[2021-08-28] MEDS ORDERED: PAPAVERINE HCL 180MG in SODIUM CHLORIDE 0.9% 24ML IV NR (13:30)
[2021-08-28] MEDS ORDERED: AMINOCAPROIC ACID 5,000 MG in SODIUM CHLORIDE 0.9% 230 ML IV NR (13:30)
[2021-08-28] MEDS ORDERED: CEFAZOLIN 2,000 MG in DEXT 5% WATER 100 ML IV NR (13:30)
[2021-08-28] MEDS ORDERED: EPINEPHRINE 5 MG in DEXT 5% WATER 245 ML IV NR (13:30)
[2021-08-28] MEDS ORDERED: ATROPINE SULFATE 1MG/10ML SYR IV PRN (15:00)
[2021-08-28] MEDS ORDERED: ACETAMINOPHEN 325MG TABLET PO PRN (15:00)
[2021-08-28] MEDS ORDERED: NALOXONE HCL 0.4MG/ML VIAL IV PRN (15:15)
[2021-08-28] MEDS ORDERED: HEPARIN 5000 UNITS/ML VIAL IV SCH (15:15)
[2021-08-28] MEDS ORDERED: HEPARIN 25,000 UNITS PREMIX 250 ML IV PRN (15:15)
[2021-08-28] MEDS ORDERED: HEPARIN 5000 UNITS/ML VIAL IV PRN ×2 (15:15)
[2021-08-28] MEDS ORDERED: NITROGLYCERIN 50MG PREMIX 250 ML IV ONE (15:39)
[2021-08-28] MEDS: SODIUM CHLORIDE 0.45% 1,000 ML IV SCH (15:48)
[2021-08-28] MEDS: NITROGLYCERIN 50MG PREMIX 250 ML IV PRN (15:49)
[2021-08-28 16:26] LABS: INR 1.1
[2021-08-28 16:32] LABS: PARTIAL THROMBOPLASTIN TIME > 200.0 sec (23.4-31.0)
[2021-08-28] MEDS: HYDROCODONE/ACETAMINOPHEN 5/325MG TABLET PO PRN ×2 (16:45→21:19)
[2021-08-28] MEDS ORDERED: HEPARIN 60 UNITS/KG BOLUS IV NR (17:30)
[2021-08-28] MEDS ORDERED: HEPARIN 25,000 UNITS in DEXT 5% WATER 250 ML IV SCH (19:00)
[2021-08-28] MEDS: TEMAZEPAM 15MG CAPSULE PO PRN (19:58)
[2021-08-28] MEDS ORDERED: HEPARIN BOLUS PRN aPTT <30 IV (20:00)
[2021-08-29] VITALS (106 sets, daily range): BP systolic 92–151; BP diastolic 34–90
[2021-08-29] MEDS: MORPHINE SULFATE 2 MG/ML CPJ (NOT FOR IM USE) IV PRN ×6 (00:12→20:22)
[2021-08-29] MEDS: HYDROCODONE/ACETAMINOPHEN 5/325MG TABLET PO PRN ×4 (00:47→23:35)
[2021-08-29] MEDS ORDERED: HEPARIN IV SCH (01:00)
[2021-08-29] MEDS ORDERED: DEXT 5% IV SCH (01:00)
[2021-08-29] MEDS ORDERED: WATER IV SCH (01:00)
[2021-08-29] MEDS: HEPARIN 25,000 UNITS in DEXT 5% WATER 245 ML IV SCH ×2 (01:21→23:17)
[2021-08-29] MEDS: NITROGLYCERIN 50MG PREMIX 250 ML IV PRN ×3 (01:32→21:10)
[2021-08-29] MEDS: SODIUM CHLORIDE 0.45% 1,000 ML IV SCH ×3 (04:25→22:54)
[2021-08-29 07:23] LABS: BASOPHILS % 0.2 % (0.0-2.0); EOSINOPHILS % 0.4 % (0.0-5.0); HEMATOCRIT. 21.9 % (36.0-48.0); HEMOGLOBIN. 7.2 g/dL (12.0-16.0); LYMPHOCYTES % 14.2 % (20.0-50.0); MEAN CORPUSCULAR HEMOGLOBIN 27.5 pg (28.0-32.0); MEAN CORPUSCULAR VOLUME 83.7 fL (81.0-99.0); MONOCYTES % 9.5 % (2.0-8.0); NEUTROPHILS % 75.7 % (40.0-76.0); PLATELET 214 x1000/uL (130-400); RED BLOOD CELL COUNT 2.61 mill/uL (4.2-5.4); RED CELL DISTRIBUTION WIDTH 18.6 % (11.6-14.6)
[2021-08-29 07:35] LABS: CHLORIDE 108 mEq/L (98-107)
[2021-08-29] MEDS ORDERED: POTASSIUM CHLORIDE INJ 40 MEQ in DEXT 5% WATER 250 ML IV ONE (08:45)
[2021-08-29] MEDS: ASPIRIN 81MG TABLET PO SCH (09:35)
[2021-08-29] MEDS: LEVETIRACETAM 500MG TABLET PO SCH ×2 (09:36→20:28)
[2021-08-29] MEDS: PANTOPRAZOLE 40MG DR TABLET PO SCH (09:36)
[2021-08-29] MEDS: AMLODIPINE 5MG TABLET PO SCH (09:37)
[2021-08-29] MEDS: KCL 20MEQ/100ML PREMIX 100 ML IV SCH ×2 (12:29→15:12)
[2021-08-29] MEDS: METOPROLOL TARTRATE 25MG TABLET PO SCH ×2 (12:30→20:29)
[2021-08-29] MEDS: HEPARIN BOLUS PRN aPTT 30-44 IV (14:55)
[2021-08-29 15:25] LABS: PLT FUNCT COLLAGEN/EPINEPHRINE 189 CT(SEC) (76-176)
[2021-08-29 15:26] LABS: PTLFUNC COLLAGEN/ADP 196 CT(SEC) (60-115)
[2021-08-29] MEDS: ACETAMINOPHEN 325MG TABLET PO PRN (17:17)
[2021-08-30] VITALS (101 sets, daily range): BP systolic 106–170; BP diastolic 54–91
[2021-08-30] MEDS: MORPHINE SULFATE 2 MG/ML CPJ (NOT FOR IM USE) IV PRN ×5 (01:18→19:55)
[2021-08-30 01:23] LABS: BASOPHILS % 0.2 % (0.0-2.0); EOSINOPHILS % 1.1 % (0.0-5.0); HEMATOCRIT. 28.6 % (36.0-48.0); HEMOGLOBIN. 9.3 g/dL (12.0-16.0); LYMPHOCYTES % 10.5 % (20.0-50.0); MEAN CORPUSCULAR HEMOGLOBIN 27.5 pg (28.0-32.0); MEAN CORPUSCULAR VOLUME 84.7 fL (81.0-99.0); MEAN PLATELET VOLUME 8.2 fl (7.4-10.4); MONOCYTES % 8.8 % (2.0-8.0); NEUTROPHILS % 79.4 % (40.0-76.0); PLATELET 176 x1000/uL (130-400); RED BLOOD CELL COUNT 3.37 mill/uL (4.2-5.4); RED CELL DISTRIBUTION WIDTH 17.3 % (11.6-14.6)
[2021-08-30] MEDS: HYDROCODONE/ACETAMINOPHEN 5/325MG TABLET PO PRN ×4 (03:54→19:05)
[2021-08-30] MEDS: NITROGLYCERIN 50MG PREMIX 250 ML IV PRN ×3 (04:52→22:15)
[2021-08-30 05:08] LABS: BASOPHILS % 0.2 % (0.0-2.0); EOSINOPHILS % 1.2 % (0.0-5.0); HEMOGLOBIN. 9.4 g/dL (12.0-16.0); LYMPHOCYTES % 13.8 % (20.0-50.0); MEAN CORPUSCULAR HEMOGLOBIN 27.9 pg (28.0-32.0); MEAN CORPUSCULAR VOLUME 85.9 fL (81.0-99.0); MEAN PLATELET VOLUME 8.6 fl (7.4-10.4); MONOCYTES % 8.2 % (2.0-8.0); NEUTROPHILS % 76.6 % (40.0-76.0); PLATELET 172 x1000/uL (130-400); RED BLOOD CELL COUNT 3.37 mill/uL (4.2-5.4); RED CELL DISTRIBUTION WIDTH 17.1 % (11.6-14.6)
[2021-08-30 05:17] LABS: CHLORIDE 113 mEq/L (98-107)
[2021-08-30] MEDS: HEPARIN BOLUS PRN aPTT 30-44 IV (06:02)
[2021-08-30] MEDS: PANTOPRAZOLE 40MG DR TABLET PO SCH (08:27)
[2021-08-30] MEDS: ASPIRIN 81MG TABLET PO SCH (08:27)
[2021-08-30] MEDS: LEVETIRACETAM 500MG TABLET PO SCH ×2 (08:28→20:58)
[2021-08-30] MEDS: METOPROLOL TARTRATE 25MG TABLET PO SCH ×2 (08:28→20:57)
[2021-08-30] MEDS: AMLODIPINE 5MG TABLET PO SCH (08:30)
[2021-08-30] MEDS: HEPARIN 25,000 UNITS in DEXT 5% WATER 245 ML IV SCH ×2 (13:24→20:56)
[2021-08-30] MEDS: SODIUM CHLORIDE 0.45% 1,000 ML IV SCH (13:31)
[2021-08-30] MEDS ORDERED: NITROGLYCERIN 0.4MG TABLET SL SL PRN (15:00)
[2021-08-30] MEDS ORDERED: ACETAMINOPHEN 325MG TABLET PO PRN (15:00)
[2021-08-30 15:23] LABS: BG BASE EXCESS -3.2 mmol/L (-2.0-2.0); BG CARBOXYHEMOGLOBIN 0.3 % (0.5-1.5); BG DEOXYHEMOGLOBIN 3.3 % (0.0-5.0); BG FRACTION INSPIRED OXYGEN 28; BG HCO3 ACT 20.9 mmol/L (22.0-26.0); BG METHEMOGLOBIN 0.5 % (0.0-1.5); BG OXYGEN SATURATION 96.7 % (92.0-98.5); BG OXYHEMOGLOBIN 95.9 % (94.0-97.0); BG PCO2 34.2 mmHg (35.0-45.0); BG PH 7.405 (7.350-7.450); BG PO2 94.9 mmHg (75.0-100.0); BG SAMPLE SITE ALINE; BG VENT MODE NASAL CANNULA
[2021-08-30] MEDS: TEMAZEPAM 15MG CAPSULE PO PRN (19:05)
[2021-08-30] MEDS: ALLOPURINOL 300 MG TABLET PO SCH (20:58)
[2021-08-30] MEDS ORDERED: CHLORHEXIDINE GLUCONATE 4% EXTERNAL USE TOP SCH (21:00)
[2021-08-30] MEDS ORDERED: BISACODYL 10MG SUPP PR PRN (21:00)
[2021-08-30] MEDS ORDERED: ASCORBIC ACID 500 MG TABLET PO SCH (21:00)
[2021-08-30] MEDS ORDERED: DIPHENHYDRAMINE 25MG CAPSULE PO PRN (21:00)
[2021-08-30] MEDS ORDERED: DOCUSATE SODIUM 100MG CAPSULE PO SCH (21:00)
[2021-08-30] MEDS: ALPRAZOLAM 0.25 MG TABLET PO PRN (22:14)
[2021-08-31] VITALS (103 sets, daily range): BP systolic 100–163; BP diastolic 21–130
[2021-08-31] MEDS: MORPHINE SULFATE 2 MG/ML CPJ (NOT FOR IM USE) IV PRN ×6 (00:32→22:22)
[2021-08-31] MEDS: NITROGLYCERIN 50MG PREMIX 250 ML IV PRN (05:30)
[2021-08-31] MEDS: ALLOPURINOL 300 MG TABLET PO SCH (05:30)
[2021-08-31] MEDS ORDERED: THROMBIN (BOVINE) 5000 UNITS/VIAL TOP ONE (05:37)
[2021-08-31] MEDS ORDERED: HEPARIN 1000 UNITS/ML 10ML ONE ×3 (05:37→10:33)
[2021-08-31] MEDS ORDERED: METHYLENE BLUE 50 MG/10 ML AMP IV ONE (05:38)
[2021-08-31] MEDS ORDERED: POLYMYXIN B SULFATE 500000 UNITS/VIAL ONE (05:39)
[2021-08-31] MEDS ORDERED: EPINEPHRINE 5 MG in DEXT 5% WATER 245 ML IV ONE (06:00)
[2021-08-31] MEDS ORDERED: PAPAVERINE HCL 180MG in SODIUM CHLORIDE 0.9% 24ML IV ONE (06:00)
[2021-08-31] MEDS ORDERED: NOREPINEPHRINE 8 MG in DEXT 5% WATER 242 ML IV ONE (06:00)
[2021-08-31] MEDS ORDERED: INSULIN REGULAR (DRIP) 100 UNITS in SODIUM CHLORIDE 0.9% 99 ML IV ONE (06:00)
[2021-08-31] MEDS ORDERED: DOBUTAMINE 250 MG PREMIX 250 ML IV PRN (06:00)
[2021-08-31] MEDS ORDERED: NICARDIPINE 40 MG/200 ML PREMIX 200 ML IV PRN (06:00)
[2021-08-31] MEDS ORDERED: DOPAMINE 400 MG PREMIX 250 ML IV PRN (06:00)
[2021-08-31] MEDS ORDERED: AMINOCAPROIC ACID 5,000 MG in SODIUM CHLORIDE 0.9% 230 ML IV ONE (06:00)
[2021-08-31] MEDS ORDERED: DEL NIDO ELECTROLYTE-S(PH 7.4) 1,000 ML IV ONE ×2 (06:00)
[2021-08-31] MEDS ORDERED: CEFAZOLIN 2000MG in DEXTROSE 5% WATER 100ML IV SCH (06:00)
[2021-08-31 06:28] LABS: BASOPHILS % 0.3 % (0.0-2.0); EOSINOPHILS % 1.2 % (0.0-5.0); HEMATOCRIT. 27.7 % (36.0-48.0); HEMOGLOBIN. 9.2 g/dL (12.0-16.0); LYMPHOCYTES % 14.9 % (20.0-50.0); MEAN CORPUSCULAR HEMOGLOBIN 28.3 pg (28.0-32.0); MEAN CORPUSCULAR VOLUME 85.3 fL (81.0-99.0); MEAN PLATELET VOLUME 8.4 fl (7.4-10.4); MONOCYTES % 8.7 % (2.0-8.0); NEUTROPHILS % 74.9 % (40.0-76.0); PLATELET 168 x1000/uL (130-400); RED BLOOD CELL COUNT 3.25 mill/uL (4.2-5.4); RED CELL DISTRIBUTION WIDTH 17.3 % (11.6-14.6)
[2021-08-31 06:31] LABS: CHLORIDE 110 mEq/L (98-107)
[2021-08-31] MEDS ORDERED: CEFAZOLIN SODIUM 1000MG/VIAL ONE ×2 (06:54→07:26)
[2021-08-31] MEDS ORDERED: ROCURONIUM BROMIDE 10MG/ML VIAL 5ML IV ONE (06:57)
[2021-08-31] MEDS ORDERED: DEXAMETHASONE 4MG/ML 1ML VIAL ONE (06:58)
[2021-08-31] MEDS ORDERED: CHLORHEXIDINE GLUCONATE 4% EXTERNAL USE TOP SCH (07:00)
[2021-08-31] MEDS ORDERED: AMINOCAPROIC ACID 250 MG/ML 20ML VIAL ONE ×2 (07:41→07:43)
[2021-08-31] MEDS: PANTOPRAZOLE 40MG DR TABLET PO SCH (07:50)
[2021-08-31] MEDS ORDERED: FENTANYL CITRATE/PF 50MCG/ML 5ML VIAL ONE (08:14)
[2021-08-31] MEDS: AMLODIPINE 5MG TABLET PO SCH (09:00)
[2021-08-31] MEDS: ASPIRIN 81MG TABLET PO SCH (09:00)
[2021-08-31] MEDS: METOPROLOL TARTRATE 25MG TABLET PO SCH ×2 (09:00→20:24)
[2021-08-31] MEDS: LEVETIRACETAM 500MG TABLET PO SCH ×2 (09:00→20:24)
[2021-08-31] MEDS ORDERED: KCL 10MEQ/50ML PREMIX 150 ML IV PRN (09:00)
[2021-08-31] MEDS ORDERED: KCL 10MEQ/50ML PREMIX 200 ML IV PRN (09:00)
[2021-08-31] MEDS ORDERED: DEXTROSE 50% WATER 50ML SYRINGE IV PRN ×2 (09:00)
[2021-08-31] MEDS ORDERED: SKIN ADHESIVE 0.7 GM EA TOP ONE (09:19)
[2021-08-31] MEDS: SODIUM CHLORIDE 0.45% 1,000 ML IV SCH (09:20)
[2021-08-31] MEDS ORDERED: PROPOFOL 10MG/ML 100ML 100 ML IV ONE (09:34)
[2021-08-31] MEDS ORDERED: CALCIUM CHLORIDE 1GM/10ML SYR IV ONE ×2 (10:33→10:45)
[2021-08-31] MEDS ORDERED: MAGNESIUM SULFATE 5GM/10ML VIAL IV ONE (10:33)
[2021-08-31] MEDS ORDERED: POTASSIUM CHLORIDE 40MEQ/20ML INJ IV ONE (10:33)
[2021-08-31] MEDS ORDERED: PHENYLEPHRINE HCL 10 MG/ML 1ML (IV VIAL) IV ONE (10:33)
[2021-08-31] MEDS ORDERED: MANNITOL 20% (20GM/100ML) BAG 500ML PREMIX IV ONE (10:33)
[2021-08-31] MEDS ORDERED: HEPARIN 10,000 UNITS/ML VIAL ONE (10:33)
[2021-08-31] MEDS ORDERED: ALBUMIN HUMAN 25GM/100ML (25%) IV ONE (10:33)
[2021-08-31] MEDS ORDERED: LIDOCAINE HCL 2% 5ML SYRINGE IV ONE (10:33)
[2021-08-31] MEDS ORDERED: SODIUM BICARBONATE 8.4% 1 MEQ/ML 50ML SYR IV ONE (10:33)
[2021-08-31] MEDS ORDERED: PROTAMINE SULFATE 10MG/ML VIAL 25ML IV ONE (10:44)
[2021-08-31 11:14] LABS: HEMATOCRIT. 25.6 % (36.0-48.0); HEMOGLOBIN. 8.6 g/dL (12.0-16.0); MEAN CORPUSCULAR HEMOGLOBIN 28.6 pg (28.0-32.0); MEAN CORPUSCULAR VOLUME 85.3 fL (81.0-99.0); MEAN PLATELET VOLUME 8.2 fl (7.4-10.4); PLATELET 92 x1000/uL (130-400); RED BLOOD CELL COUNT 3.01 mill/uL (4.2-5.4); RED CELL DISTRIBUTION WIDTH 16.3 % (11.6-14.6)
[2021-08-31 11:22] LABS: CHLORIDE 108 mEq/L (98-107)
[2021-08-31 11:26] LABS: INR 1.1; PARTIAL THROMBOPLASTIN TIME 27.3 sec (23.4-31.0); PROTHROMBIN TIME 12.2 sec (9.6-11.0)
[2021-08-31 11:29] LABS: PHOSPHORUS 1.5 mg/dL (2.5-4.9)
[2021-08-31 11:38] LABS: PLATELET ESTIMATE SLIGHTLY DECREASED
[2021-08-31] MEDS ORDERED: ALBUTEROL 90MCG/PUFF 17GM INHALER INH ONE (12:00)
[2021-08-31] MEDS ORDERED: OXYCODONE HCL/ACETAMINOPHEN 5/325MG TABLET PO PRN (12:30)
[2021-08-31] MEDS ORDERED: ACETAMINOPHEN 325MG TABLET PO PRN (12:30)
[2021-08-31] MEDS ORDERED: MAGNESIUM SULFATE 3 GM in DEXT 5% WATER 100 ML IV PRN ×2 (12:30→16:15)
[2021-08-31] MEDS ORDERED: SODIUM CHLORIDE 0.9% 500 ML IV PRN (12:30)
[2021-08-31] MEDS ORDERED: IPRATROPIUM/ALBUTEROL 0.5-3(2.5)MG/3ML NEB HHN SCH (12:30)
[2021-08-31] MEDS ORDERED: ALBUMIN HUMAN 12.5G/250ML (5%) IV PRN (12:30)
[2021-08-31] MEDS ORDERED: DOPAMINE 400MG/250ML PREMIX 250 ML IV PRN (12:30)
[2021-08-31] MEDS ORDERED: MAGNESIUM 1 G PREMIX 100 ML IV PRN ×2 (12:30→16:15)
[2021-08-31] MEDS ORDERED: ONDANSETRON HCL 4MG/2ML INJ IV PRN (12:30)
[2021-08-31] MEDS: BLOOD SUGAR DIAGNOSTIC STRIP TEST SCH ×12 (12:31→23:00)
[2021-08-31 12:49] LABS: BG BASE EXCESS -1.7 mmol/L (-2.0-2.0); BG CARBOXYHEMOGLOBIN 0.2 % (0.5-1.5); BG DEOXYHEMOGLOBIN 6.5 % (0.0-5.0); BG FRACTION INSPIRED OXYGEN 100; BG HCO3 ACT 22.8 mmol/L (22.0-26.0); BG METHEMOGLOBIN 0.2 % (0.0-1.5); BG OXYGEN SATURATION 93.5 % (92.0-98.5); BG OXYHEMOGLOBIN 93.1 % (94.0-97.0); BG PCO2 37.4 mmHg (35.0-45.0); BG PH 7.402 (7.350-7.450); BG PO2 71.7 mmHg (75.0-100.0); BG SAMPLE SITE ALINE; BG TOTAL HEMOGLOBIN 10.5 g/dL (12.0-18.0); BG VENT MODE MASK - NRB
[2021-08-31] MEDS: INSULIN REGULAR (DRIP) 100 UNITS in SODIUM CHLORIDE 0.9% 100 ML IV SCH (12:52)
[2021-08-31] MEDS: DEXT 5%/0.45% NACL 1000ML 1,000 ML IV SCH (13:28)
[2021-08-31] MEDS: CEFAZOLIN 1000MG PREMIX 50 ML IV SCH ×2 (14:08→22:04)
[2021-08-31] MEDS ORDERED: MAGNESIUM 2 G PREMIX 50 ML IV PRN (16:15)
[2021-08-31] MEDS: MAGNESIUM HYDROXIDE 400MG/5ML 30ML UDC PO SCH ×3 (16:19→22:04)
[2021-08-31] MEDS: IPRATROPIUM/ALBUTEROL 0.5-3(2.5)MG/3ML NEB HHN SCH ×2 (16:34→19:45)
[2021-08-31] MEDS: DOCUSATE SODIUM 100MG CAPSULE PO SCH (17:21)
[2021-08-31 18:02] LABS: BG CARBOXYHEMOGLOBIN 0.1 % (0.5-1.5); BG DEOXYHEMOGLOBIN 7.5 % (0.0-5.0); BG METHEMOGLOBIN 0.2 % (0.0-1.5); BG OXYGEN SATURATION 92.5 % (92.0-98.5); BG OXYHEMOGLOBIN 92.2 % (94.0-97.0); BG PCO2 35.8 mmHg (35.0-45.0); BG PH 7.426 (7.350-7.450); BG PO2 63.3 mmHg (75.0-100.0); BG SAMPLE SITE ALINE; BG TOTAL HEMOGLOBIN 10.8 g/dL (12.0-18.0); BG VENT MODE MASK - NRB
[2021-08-31] MEDS ORDERED: NICARDIPINE 40MG/200ML PREMIX 200 ML IV PRN (18:15)
[2021-08-31 18:29] LABS: HEMATOCRIT. 30.2 % (36.0-48.0); HEMOGLOBIN. 9.9 g/dL (12.0-16.0); MEAN CORPUSCULAR HEMOGLOBIN 28.1 pg (28.0-32.0); MEAN CORPUSCULAR VOLUME 85.5 fL (81.0-99.0); MEAN PLATELET VOLUME 8.3 fl (7.4-10.4); PLATELET 92 x1000/uL (130-400); RED BLOOD CELL COUNT 3.53 mill/uL (4.2-5.4); RED CELL DISTRIBUTION WIDTH 16.5 % (11.6-14.6)
[2021-08-31 18:34] LABS: CHLORIDE 112 mEq/L (98-107)
[2021-08-31] MEDS: NICARDIPINE 50 MG in SODIUM CHLORIDE 0.9% 250 ML IV PRN (18:41)
[2021-08-31] MEDS ORDERED: FUROSEMIDE 40MG/4ML VIAL IVP NR (19:30)
[2021-08-31] MEDS: TEMAZEPAM 15MG CAPSULE PO PRN (19:30)
[2021-08-31 19:33] LABS: PLATELET ESTIMATE DECREASED
[2021-08-31] MEDS: ALPRAZOLAM 0.25 MG TABLET PO PRN (19:34)
[2021-08-31] MEDS: KCL 10MEQ/50ML PREMIX 100 ML IV PRN (19:51)
[2021-08-31] MEDS ORDERED: POTASSIUM PHOS,M-BASIC-D-BASIC 20 MMOL in DEXT 5% WATER 243.3333 ML IV NR (20:30)
[2021-08-31 20:37] LABS: BG BASE EXCESS -1.2 mmol/L (-2.0-2.0); BG CARBOXYHEMOGLOBIN 0.3 % (0.5-1.5); BG DEOXYHEMOGLOBIN 1.7 % (0.0-5.0); BG FRACTION INSPIRED OXYGEN 100; BG HCO3 ACT 21.3 mmol/L (22.0-26.0); BG METHEMOGLOBIN 0.7 % (0.0-1.5); BG OXYGEN SATURATION 98.3 % (92.0-98.5); BG OXYHEMOGLOBIN 97.3 % (94.0-97.0); BG PCO2 28.4 mmHg (35.0-45.0); BG PH 7.493 (7.350-7.450); BG PO2 145.2 mmHg (75.0-100.0); BG SAMPLE SITE ALINE; BG TOTAL HEMOGLOBIN 10.7 g/dL (12.0-18.0); BG VENT MODE MASK - BIPAP
[2021-09-01] VITALS (80 sets, daily range): BP systolic 94–175; BP diastolic 55–94
[2021-09-01 00:19] LABS: HEMATOCRIT. 29.8 % (36.0-48.0); HEMOGLOBIN. 9.9 g/dL (12.0-16.0); MEAN CORPUSCULAR HEMOGLOBIN 28.1 pg (28.0-32.0); MEAN CORPUSCULAR VOLUME 84.8 fL (81.0-99.0); PLATELET 110 x1000/uL (130-400); RED BLOOD CELL COUNT 3.52 mill/uL (4.2-5.4); RED CELL DISTRIBUTION WIDTH 16.8 % (11.6-14.6)
[2021-09-01 00:22] LABS: BG CARBOXYHEMOGLOBIN 0.3 % (0.5-1.5); BG DEOXYHEMOGLOBIN 2.4 % (0.0-5.0); BG FRACTION INSPIRED OXYGEN 90; BG METHEMOGLOBIN 0.3 % (0.0-1.5); BG OXYGEN SATURATION 97.6 % (92.0-98.5); BG PCO2 32.4 mmHg (35.0-45.0); BG PH 7.488 (7.350-7.450); BG PO2 97.3 mmHg (75.0-100.0); BG SAMPLE SITE ALINE; BG TOTAL HEMOGLOBIN 10.4 g/dL (12.0-18.0); BG VENT MODE MASK - BIPAP
[2021-09-01] MEDS: IPRATROPIUM/ALBUTEROL 0.5-3(2.5)MG/3ML NEB HHN SCH ×6 (00:33→20:03)
[2021-09-01] MEDS: MORPHINE SULFATE 2 MG/ML CPJ (NOT FOR IM USE) IV PRN ×8 (00:34→23:08)
[2021-09-01 00:35] LABS: CHLORIDE 110 mEq/L (98-107)
[2021-09-01 00:40] LABS: PHOSPHORUS 2.8 mg/dL (2.5-4.9)
[2021-09-01] MEDS: BLOOD SUGAR DIAGNOSTIC STRIP TEST SCH ×21 (01:00→22:00)
[2021-09-01] MEDS: OXYCODONE HCL/ACETAMINOPHEN 5/325MG TABLET PO PRN (02:05)
[2021-09-01] MEDS: MAGNESIUM 2 G PREMIX 50 ML IV PRN (02:16)
[2021-09-01] MEDS: KCL 10MEQ/50ML PREMIX 100 ML IV PRN ×3 (02:19→18:49)
[2021-09-01] MEDS: MAGNESIUM HYDROXIDE 400MG/5ML 30ML UDC PO SCH ×4 (03:46→14:00)
[2021-09-01] MEDS: INSULIN REGULAR (DRIP) 100 UNITS in SODIUM CHLORIDE 0.9% 100 ML IV SCH (04:55)
[2021-09-01 06:13] LABS: BG BASE EXCESS -4.7 mmol/L (-2.0-2.0); BG CARBOXYHEMOGLOBIN 0.3 % (0.5-1.5); BG DEOXYHEMOGLOBIN 1.1 % (0.0-5.0); BG FRACTION INSPIRED OXYGEN 90; BG HCO3 ACT 18.3 mmol/L (22.0-26.0); BG METHEMOGLOBIN 0.3 % (0.0-1.5); BG OXYGEN SATURATION 98.9 % (92.0-98.5); BG OXYHEMOGLOBIN 98.3 % (94.0-97.0); BG PCO2 27.2 mmHg (35.0-45.0); BG PH 7.445 (7.350-7.450); BG PO2 148.8 mmHg (75.0-100.0); BG SAMPLE SITE ALINE; BG TOTAL HEMOGLOBIN 10.8 g/dL (12.0-18.0); BG VENT MODE MASK - BIPAP
[2021-09-01] MEDS: NICARDIPINE 50 MG in SODIUM CHLORIDE 0.9% 250 ML IV PRN (06:24)
[2021-09-01] MEDS: CEFAZOLIN 1000MG PREMIX 50 ML IV SCH ×3 (06:24→22:12)
[2021-09-01 06:39] LABS: HEMATOCRIT. 30.8 % (36.0-48.0); HEMOGLOBIN. 9.9 g/dL (12.0-16.0); MEAN CORPUSCULAR HEMOGLOBIN 27.8 pg (28.0-32.0); MEAN PLATELET VOLUME 8.6 fl (7.4-10.4); PLATELET 120 x1000/uL (130-400); RED BLOOD CELL COUNT 3.58 mill/uL (4.2-5.4); RED CELL DISTRIBUTION WIDTH 16.8 % (11.6-14.6)
[2021-09-01 06:41] LABS: CHLORIDE 110 mEq/L (98-107)
[2021-09-01 06:57] LABS: PLATELET ESTIMATE SLIGHTLY DECREASED
[2021-09-01] MEDS ORDERED: FUROSEMIDE 40MG/4ML VIAL IVP SCH (07:15)
[2021-09-01] MEDS: BACITRACIN 15GM TUBE TOP SCH ×2 (09:00→17:21)
[2021-09-01] MEDS: METOPROLOL TARTRATE 25MG TABLET PO SCH ×2 (09:17→20:19)
[2021-09-01] MEDS: PANTOPRAZOLE 40MG DR TABLET PO SCH (09:17)
[2021-09-01] MEDS: DOCUSATE SODIUM 100MG CAPSULE PO SCH ×2 (09:17→16:47)
[2021-09-01] MEDS: ASPIRIN 81MG TABLET PO SCH (09:17)
[2021-09-01] MEDS: LEVETIRACETAM 500MG TABLET PO SCH ×2 (09:17→20:12)
[2021-09-01] MEDS: FAMOTIDINE 20MG/2ML VIAL IV SCH (09:17)
[2021-09-01] MEDS: AMLODIPINE 5MG TABLET PO SCH (09:17)
[2021-09-01 10:23] LABS: BG BASE EXCESS -2.4 mmol/L (-2.0-2.0); BG CARBOXYHEMOGLOBIN 0.3 % (0.5-1.5); BG DEOXYHEMOGLOBIN 5.6 % (0.0-5.0); BG FRACTION INSPIRED OXYGEN 60; BG HCO3 ACT 20.5 mmol/L (22.0-26.0); BG METHEMOGLOBIN 0.1 % (0.0-1.5); BG OXYGEN SATURATION 94.4 % (92.0-98.5); BG PCO2 29.3 mmHg (35.0-45.0); BG PH 7.463 (7.350-7.450); BG PO2 72.4 mmHg (75.0-100.0); BG SAMPLE SITE ALINE; BG TOTAL HEMOGLOBIN 10.9 g/dL (12.0-18.0); BG VENT MODE MASK - BIPAP
[2021-09-01] MEDS: DEXT 5%/0.45% NACL 1000ML 1,000 ML IV SCH (10:44)
[2021-09-01 12:34] LABS: HEMATOCRIT. 30.9 % (36.0-48.0); HEMOGLOBIN. 9.9 g/dL (12.0-16.0); MEAN CORPUSCULAR HEMOGLOBIN 27.8 pg (28.0-32.0); MEAN CORPUSCULAR VOLUME 86.4 fL (81.0-99.0); MEAN PLATELET VOLUME 9.3 fl (7.4-10.4); PLATELET 130 x1000/uL (130-400); RED BLOOD CELL COUNT 3.57 mill/uL (4.2-5.4)
[2021-09-01 12:40] LABS: CHLORIDE 106 mEq/L (98-107)
[2021-09-01 12:46] LABS: PHOSPHORUS 3.4 mg/dL (2.5-4.9)
[2021-09-01 12:57] LABS: PLATELET ESTIMATE NORMAL
[2021-09-01 14:16] LABS: PLATELET ESTIMATE SLIGHTLY DECREASED
[2021-09-01] MEDS ORDERED: FUROSEMIDE 40MG/4ML VIAL IVP NR (17:00)
[2021-09-01] MEDS: ALPRAZOLAM 0.25 MG TABLET PO PRN (20:12)
[2021-09-01] MEDS: TEMAZEPAM 15MG CAPSULE PO PRN (20:12)
[2021-09-02] VITALS (73 sets, daily range): BP systolic 101–267; BP diastolic 41–219
[2021-09-02] MEDS: IPRATROPIUM/ALBUTEROL 0.5-3(2.5)MG/3ML NEB HHN SCH ×5 (00:31→20:45)
[2021-09-02] MEDS: INSULIN REGULAR (DRIP) 100 UNITS in SODIUM CHLORIDE 0.9% 100 ML IV SCH (01:18)
[2021-09-02] MEDS: OXYCODONE HCL/ACETAMINOPHEN 5/325MG TABLET PO PRN (01:25)
[2021-09-02] MEDS: BLOOD SUGAR DIAGNOSTIC STRIP TEST SCH ×10 (02:00→22:00)
[2021-09-02 04:43] LABS: HEMATOCRIT. 27.9 % (36.0-48.0); HEMOGLOBIN. 9.1 g/dL (12.0-16.0); MEAN CORPUSCULAR VOLUME 85.9 fL (81.0-99.0); MEAN PLATELET VOLUME 8.8 fl (7.4-10.4); PLATELET 119 x1000/uL (130-400); RED BLOOD CELL COUNT 3.25 mill/uL (4.2-5.4); RED CELL DISTRIBUTION WIDTH 17.3 % (11.6-14.6)
[2021-09-02 04:55] LABS: CHLORIDE 107 mEq/L (98-107)
[2021-09-02 05:03] LABS: PHOSPHORUS 2.7 mg/dL (2.5-4.9)
[2021-09-02] MEDS: DEXT 5%/0.45% NACL 1000ML 1,000 ML IV SCH (06:52)
[2021-09-02] MEDS: CEFAZOLIN 1000MG PREMIX 50 ML IV SCH ×3 (06:52→21:26)
[2021-09-02 07:48] LABS: BG BASE EXCESS 0.1 mmol/L (-2.0-2.0); BG CARBOXYHEMOGLOBIN 0.2 % (0.5-1.5); BG DEOXYHEMOGLOBIN 3.5 % (0.0-5.0); BG FRACTION INSPIRED OXYGEN 40; BG HCO3 ACT 23.5 mmol/L (22.0-26.0); BG OXYGEN SATURATION 96.5 % (92.0-98.5); BG OXYHEMOGLOBIN 95.3 % (94.0-97.0); BG PCO2 33.7 mmHg (35.0-45.0); BG PH 7.461 (7.350-7.450); BG PO2 93.1 mmHg (75.0-100.0); BG SAMPLE SITE ALINE; BG TOTAL HEMOGLOBIN 10.4 g/dL (12.0-18.0); BG VENT MODE NASAL CANNULA
[2021-09-02] MEDS: ASPIRIN 81MG TABLET PO SCH (08:26)
[2021-09-02] MEDS: MORPHINE SULFATE 2 MG/ML CPJ (NOT FOR IM USE) IV PRN ×5 (08:26→22:34)
[2021-09-02] MEDS: METOPROLOL TARTRATE 25MG TABLET PO SCH ×2 (08:27→20:11)
[2021-09-02] MEDS: AMLODIPINE 5MG TABLET PO SCH (08:27)
[2021-09-02] MEDS: PANTOPRAZOLE 40MG DR TABLET PO SCH (08:27)
[2021-09-02] MEDS: DOCUSATE SODIUM 100MG CAPSULE PO SCH ×2 (08:27→17:00)
[2021-09-02] MEDS: LEVETIRACETAM 500MG TABLET PO SCH ×2 (08:27→20:11)
[2021-09-02] MEDS: FAMOTIDINE 20MG/2ML VIAL IV SCH (08:28)
[2021-09-02] MEDS: BACITRACIN 15GM TUBE TOP SCH ×2 (08:46→17:02)
[2021-09-02] MEDS: ACETAMINOPHEN 325MG TABLET PO PRN (09:47)
[2021-09-02] MEDS ORDERED: FUROSEMIDE 40MG/4ML VIAL IVP NR (11:15)
[2021-09-02 12:22] LABS: PLATELET ESTIMATE SLIGHTLY DECREASED
[2021-09-02] MEDS: CLOPIDOGREL 75MG TABLET PO SCH (12:59)
[2021-09-02] MEDS: ALPRAZOLAM 0.25 MG TABLET PO PRN (20:11)
[2021-09-03] VITALS (48 sets, daily range): BP systolic 104–155; BP diastolic 57–107
[2021-09-03] MEDS: IPRATROPIUM/ALBUTEROL 0.5-3(2.5)MG/3ML NEB HHN SCH ×6 (00:26→20:37)
[2021-09-03] MEDS: INSULIN REGULAR (DRIP) 100 UNITS in SODIUM CHLORIDE 0.9% 100 ML IV SCH (00:26)
[2021-09-03] MEDS: MORPHINE SULFATE 2 MG/ML CPJ (NOT FOR IM USE) IV PRN ×7 (00:41→21:14)
[2021-09-03] MEDS: BLOOD SUGAR DIAGNOSTIC STRIP TEST SCH ×8 (02:00→21:00)
[2021-09-03] MEDS: DEXT 5%/0.45% NACL 1000ML 1,000 ML IV SCH (02:35)
[2021-09-03] MEDS: ALPRAZOLAM 0.25 MG TABLET PO PRN (03:26)
[2021-09-03] MEDS: CEFAZOLIN 1000MG PREMIX 50 ML IV SCH ×3 (05:18→21:15)
[2021-09-03 06:45] LABS: BASOPHILS % 0.1 % (0.0-2.0); EOSINOPHILS % 1.2 % (0.0-5.0); HEMATOCRIT. 30.4 % (36.0-48.0); HEMOGLOBIN. 9.7 g/dL (12.0-16.0); LYMPHOCYTES % 10.3 % (20.0-50.0); MEAN CORPUSCULAR HEMOGLOBIN 28.2 pg (28.0-32.0); MEAN CORPUSCULAR VOLUME 88.7 fL (81.0-99.0); MEAN PLATELET VOLUME 9.2 fl (7.4-10.4); MONOCYTES % 11.3 % (2.0-8.0); NEUTROPHILS % 77.1 % (40.0-76.0); PLATELET 158 x1000/uL (130-400); RED BLOOD CELL COUNT 3.43 mill/uL (4.2-5.4); RED CELL DISTRIBUTION WIDTH 17.2 % (11.6-14.6)
[2021-09-03 06:51] LABS: CHLORIDE 106 mEq/L (98-107)
[2021-09-03 06:58] LABS: PHOSPHORUS 2.1 mg/dL (2.5-4.9)
[2021-09-03] MEDS: INSULIN LISPRO 100 UNITS/ML SUBCUT SCH ×4 (08:01→21:00)
[2021-09-03] MEDS: CLOPIDOGREL 75MG TABLET PO SCH (08:03)
[2021-09-03] MEDS: AMLODIPINE 5MG TABLET PO SCH (08:03)
[2021-09-03] MEDS: ASPIRIN 81MG TABLET PO SCH (08:03)
[2021-09-03] MEDS: FAMOTIDINE 20MG/2ML VIAL IV SCH (08:03)
[2021-09-03] MEDS: METOPROLOL TARTRATE 25MG TABLET PO SCH ×2 (08:04→21:15)
[2021-09-03] MEDS: PANTOPRAZOLE 40MG DR TABLET PO SCH (08:04)
[2021-09-03] MEDS: BACITRACIN 15GM TUBE TOP SCH ×2 (08:04→16:32)
[2021-09-03] MEDS: LEVETIRACETAM 500MG TABLET PO SCH ×2 (08:04→21:14)
[2021-09-03] MEDS: DOCUSATE SODIUM 100MG CAPSULE PO SCH ×2 (08:12→16:33)
[2021-09-03] MEDS ORDERED: POTASSIUM PHOS,M-BASIC-D-BASIC 20 MMOL in DEXT 5% WATER 243.3333 ML IV NR (08:30)
[2021-09-03] MEDS ORDERED: DEXTROSE 50% WATER 50ML SYRINGE IV PRN (09:00)
[2021-09-03] MEDS ORDERED: KETOROLAC 15MG/ML VIAL IV NR (14:30)
[2021-09-04] VITALS (32 sets, daily range): BP systolic 92–168; BP diastolic 59–113
[2021-09-04] MEDS: IPRATROPIUM/ALBUTEROL 0.5-3(2.5)MG/3ML NEB HHN SCH ×6 (00:32→21:44)
[2021-09-04] MEDS: MORPHINE SULFATE 2 MG/ML CPJ (NOT FOR IM USE) IV PRN ×6 (00:57→21:45)
[2021-09-04] MEDS: ALPRAZOLAM 0.25 MG TABLET PO PRN (00:57)
[2021-09-04] MEDS: CEFAZOLIN 1000MG PREMIX 50 ML IV SCH ×3 (04:15→21:27)
[2021-09-04] MEDS: INSULIN LISPRO 100 UNITS/ML SUBCUT SCH ×4 (08:20→21:00)
[2021-09-04] MEDS: BLOOD SUGAR DIAGNOSTIC STRIP TEST SCH ×4 (08:20→21:27)
[2021-09-04] MEDS: ASPIRIN 81MG TABLET PO SCH (08:21)
[2021-09-04] MEDS: AMLODIPINE 5MG TABLET PO SCH (08:21)
[2021-09-04] MEDS: FAMOTIDINE 20MG/2ML VIAL IV SCH (08:21)
[2021-09-04] MEDS: CLOPIDOGREL 75MG TABLET PO SCH (08:21)
[2021-09-04] MEDS: METOPROLOL TARTRATE 25MG TABLET PO SCH ×2 (08:21→21:30)
[2021-09-04] MEDS: DOCUSATE SODIUM 100MG CAPSULE PO SCH ×2 (08:21→17:47)
[2021-09-04] MEDS: PANTOPRAZOLE 40MG DR TABLET PO SCH (08:21)
[2021-09-04] MEDS: LEVETIRACETAM 500MG TABLET PO SCH ×2 (08:21→21:27)
[2021-09-04] MEDS: BACITRACIN 15GM TUBE TOP SCH ×2 (08:27→18:00)
[2021-09-04 09:43] LABS: BASOPHILS % 0.4 % (0.0-2.0); EOSINOPHILS % 1.6 % (0.0-5.0); HEMATOCRIT. 32.6 % (36.0-48.0); HEMOGLOBIN. 10.3 g/dL (12.0-16.0); LYMPHOCYTES % 13.5 % (20.0-50.0); MEAN CORPUSCULAR HEMOGLOBIN 27.8 pg (28.0-32.0); MEAN CORPUSCULAR VOLUME 87.5 fL (81.0-99.0); MEAN PLATELET VOLUME 8.6 fl (7.4-10.4); MONOCYTES % 10.7 % (2.0-8.0); NEUTROPHILS % 73.8 % (40.0-76.0); PLATELET 238 x1000/uL (130-400); RED BLOOD CELL COUNT 3.72 mill/uL (4.2-5.4)
[2021-09-04] MEDS: CLONIDINE 0.1MG TABLET PO PRN (09:44)
[2021-09-04 09:49] LABS: CHLORIDE 107 mEq/L (98-107)
[2021-09-04 09:54] LABS: PHOSPHORUS 3.8 mg/dL (2.5-4.9)
[2021-09-04] MEDS: MAGNESIUM 2 G PREMIX 50 ML IV PRN (10:14)
[2021-09-05] VITALS (12 sets, daily range): BP systolic 119–159; BP diastolic 71–90
[2021-09-05] MEDS: IPRATROPIUM/ALBUTEROL 0.5-3(2.5)MG/3ML NEB HHN SCH ×4 (00:53→21:54)
[2021-09-05] MEDS: MORPHINE SULFATE 2 MG/ML CPJ (NOT FOR IM USE) IV PRN ×2 (02:09→06:05)
[2021-09-05] MEDS: CEFAZOLIN 1000MG PREMIX 50 ML IV SCH ×2 (06:05→15:10)
[2021-09-05] MEDS: PANTOPRAZOLE 40MG DR TABLET PO SCH (06:06)
[2021-09-05] MEDS: BLOOD SUGAR DIAGNOSTIC STRIP TEST SCH ×4 (06:06→20:55)
[2021-09-05] MEDS: INSULIN LISPRO 100 UNITS/ML SUBCUT SCH ×4 (07:20→20:55)
[2021-09-05] MEDS: DOCUSATE SODIUM 100MG CAPSULE PO SCH ×2 (09:00→17:00)
[2021-09-05] MEDS: FAMOTIDINE 20MG/2ML VIAL IV SCH (10:01)
[2021-09-05] MEDS: CLOPIDOGREL 75MG TABLET PO SCH (10:01)
[2021-09-05] MEDS: ASPIRIN 81MG TABLET PO SCH (10:01)
[2021-09-05] MEDS: AMLODIPINE 5MG TABLET PO SCH (10:01)
[2021-09-05] MEDS: METOPROLOL TARTRATE 25MG TABLET PO SCH ×2 (10:02→21:50)
[2021-09-05] MEDS: LEVETIRACETAM 500MG TABLET PO SCH ×2 (10:03→21:48)
[2021-09-05] MEDS: BACITRACIN 15GM TUBE TOP SCH ×2 (10:04→17:00)
[2021-09-05] MEDS ORDERED: FUROSEMIDE 40MG/4ML VIAL IVP SCH (10:15)
[2021-09-05] MEDS ORDERED: KETOROLAC 30MG/ML VIAL IV NR (10:45)
[2021-09-05] MEDS ORDERED: KETOROLAC 30MG/ML VIAL IV PRN (13:00)
[2021-09-05] MEDS: HYDROCODONE/ACETAMINOPHEN 10/325MG TABLET PO PRN (16:18)
[2021-09-05] MEDS: KETOROLAC 30MG/ML VIAL IV SCH (21:50)
[2021-09-06] VITALS (13 sets, daily range): BP systolic 119–145; BP diastolic 58–99
[2021-09-06] MEDS: HYDROCODONE/ACETAMINOPHEN 10/325MG TABLET PO PRN ×3 (01:34→20:17)
[2021-09-06] MEDS: KETOROLAC 30MG/ML VIAL IV SCH ×3 (05:59→22:48)
[2021-09-06] MEDS: INSULIN LISPRO 100 UNITS/ML SUBCUT SCH ×4 (06:45→21:00)
[2021-09-06] MEDS: BLOOD SUGAR DIAGNOSTIC STRIP TEST SCH ×4 (06:45→21:00)
[2021-09-06] MEDS: IPRATROPIUM/ALBUTEROL 0.5-3(2.5)MG/3ML NEB HHN SCH ×4 (08:04→21:15)
[2021-09-06] MEDS: DOCUSATE SODIUM 100MG CAPSULE PO SCH ×2 (09:00→17:00)
[2021-09-06] MEDS: ASPIRIN 81MG TABLET PO SCH (10:36)
[2021-09-06] MEDS: METOPROLOL TARTRATE 25MG TABLET PO SCH ×2 (10:36→20:16)
[2021-09-06] MEDS: CLOPIDOGREL 75MG TABLET PO SCH (10:37)
[2021-09-06] MEDS: BACITRACIN 15GM TUBE TOP SCH ×2 (10:37→17:00)
[2021-09-06] MEDS: LEVETIRACETAM 500MG TABLET PO SCH ×2 (10:37→20:16)
[2021-09-06] MEDS: FAMOTIDINE 20MG TABLET PO SCH (10:37)
[2021-09-06] MEDS: AMLODIPINE 5MG TABLET PO SCH (10:37)
[2021-09-06] MEDS ORDERED: NALOXONE HCL 0.4MG/ML VIAL IV PRN (11:30)
[2021-09-07] VITALS (11 sets, daily range): BP systolic 119–143; BP diastolic 54–93
[2021-09-07] MEDS: IPRATROPIUM/ALBUTEROL 0.5-3(2.5)MG/3ML NEB HHN SCH ×6 (01:26→21:06)
[2021-09-07] MEDS: HYDROCODONE/ACETAMINOPHEN 10/325MG TABLET PO PRN ×3 (05:24→20:10)
[2021-09-07] MEDS: KETOROLAC 30MG/ML VIAL IV SCH ×3 (06:00→21:56)
[2021-09-07] MEDS: BLOOD SUGAR DIAGNOSTIC STRIP TEST SCH ×5 (06:59→20:21)
[2021-09-07] MEDS: INSULIN LISPRO 100 UNITS/ML SUBCUT SCH ×4 (07:20→20:21)
[2021-09-07] MEDS: ASPIRIN 81MG TABLET PO SCH (09:09)
[2021-09-07] MEDS: BACITRACIN 15GM TUBE TOP SCH ×2 (09:09→17:00)
[2021-09-07] MEDS: AMLODIPINE 5MG TABLET PO SCH (09:11)
[2021-09-07] MEDS: CLOPIDOGREL 75MG TABLET PO SCH (09:11)
[2021-09-07] MEDS: METOPROLOL TARTRATE 25MG TABLET PO SCH ×2 (09:11→20:09)
[2021-09-07] MEDS: FAMOTIDINE 20MG TABLET PO SCH (09:11)
[2021-09-07] MEDS: DOCUSATE SODIUM 100MG CAPSULE PO SCH ×2 (09:11→17:00)
[2021-09-07] MEDS: LEVETIRACETAM 500MG TABLET PO SCH ×2 (09:12→20:09)
[2021-09-08] VITALS (14 sets, daily range): BP systolic 108–160; BP diastolic 58–99
[2021-09-08] MEDS: IPRATROPIUM/ALBUTEROL 0.5-3(2.5)MG/3ML NEB HHN SCH ×5 (00:30→15:38)
[2021-09-08] MEDS: HYDROCODONE/ACETAMINOPHEN 10/325MG TABLET PO PRN ×3 (02:29→14:33)
[2021-09-08] MEDS: BLOOD SUGAR DIAGNOSTIC STRIP TEST SCH ×4 (06:01→16:28)
[2021-09-08] MEDS: KETOROLAC 30MG/ML VIAL IV SCH (06:12)
[2021-09-08] MEDS: INSULIN LISPRO 100 UNITS/ML SUBCUT SCH ×3 (07:20→16:28)
[2021-09-08] MEDS: LEVETIRACETAM 500MG TABLET PO SCH (08:33)
[2021-09-08] MEDS: METOPROLOL TARTRATE 25MG TABLET PO SCH (08:33)
[2021-09-08] MEDS: CLOPIDOGREL 75MG TABLET PO SCH (08:33)
[2021-09-08] MEDS: ASPIRIN 81MG TABLET PO SCH (08:33)
[2021-09-08] MEDS: FAMOTIDINE 20MG TABLET PO SCH (08:33)
[2021-09-08] MEDS: AMLODIPINE 5MG TABLET PO SCH (08:34)
[2021-09-08] MEDS: DOCUSATE SODIUM 100MG CAPSULE PO SCH ×2 (08:34→17:00)
[2021-09-08] MEDS: BACITRACIN 15GM TUBE TOP SCH ×2 (09:20→17:00)
== END 2021-09-08 20:11 | DRG 165 ==
LOC: 3WST 19:45 → CVICU 08-28 15:23 → 3WST 09-04 14:16
PROVIDERS: ADMIT Internal Medicine; ATTEND Internal Medicine
PROC: 02703ZZ Dilation of Coronary Artery, One Artery, Percutaneous Approach (ICD-10-PCS; principal; 2021-08-28)
PROC: B41FZZZ Fluoroscopy of Right Lower Extremity Arteries (ICD-10-PCS; 2021-08-28)
PROC: B211YZZ Fluoroscopy of Multiple Coronary Arteries using Other Contrast (ICD-10-PCS; 2021-08-28)
PROC: 4A023N7 Measurement of Cardiac Sampling and Pressure, Left Heart, Percutaneous Approach (ICD-10-PCS; 2021-08-28)
PROC: 02HV33Z Insertion of Infusion Device into Superior Vena Cava, Percutaneous Approach (ICD-10-PCS; 2021-08-29)
PROC: B548ZZA Ultrasonography of Superior Vena Cava, Guidance (ICD-10-PCS; 2021-08-29)
PROC: 30233N1 Transfusion of Nonautologous Red Blood Cells into Peripheral Vein, Percutaneous Approach (ICD-10-PCS; 2021-08-29)
PROC: 021109W Bypass Coronary Artery, Two Arteries from Aorta with Autologous Venous Tissue, Open Approach (ICD-10-PCS; 2021-08-31)
PROC: 5A1221Z Performance of Cardiac Output, Continuous (ICD-10-PCS; 2021-08-31)
PROC: 06BQ0ZZ Excision of Left Saphenous Vein, Open Approach (ICD-10-PCS; 2021-08-31)
PROC: B24BZZ4 Ultrasonography of Heart with Aorta, Transesophageal (ICD-10-PCS; 2021-08-31)
PROC: 5A1221Z Performance of Cardiac Output, Continuous (ICD-10-PCS; 2021-08-31)
PROC: 3E080GC Introduction of Other Therapeutic Substance into Heart, Open Approach (ICD-10-PCS; 2021-08-31)
PROC: 5A09357 Assistance with Respiratory Ventilation, Less than 24 Consecutive Hours, Continuous Positive Airway Pressure (ICD-10-PCS; 2021-08-31)
PROC: 5A1221Z Performance of Cardiac Output, Continuous (ICD-10-PCS; 2021-08-31)
PROC: 5A09357 Assistance with Respiratory Ventilation, Less than 24 Consecutive Hours, Continuous Positive Airway Pressure (ICD-10-PCS; 2021-09-02)
PROC: 4A10X4Z Monitoring of Central Nervous Electrical Activity, External Approach (ICD-10-PCS; 2021-09-04)
DX: T82.855A Stenosis of coronary artery stent, initial encounter (principal); J96.01 Acute respiratory failure with hypoxia; I25.42 Coronary artery dissection; I21.4 Non-ST elevation (NSTEMI) myocardial infarction; E44.1 Mild protein-calorie malnutrition; I50.21 Acute systolic (congestive) heart failure; D64.9 Anemia, unspecified; G40.909 Epilepsy, unspecified, not intractable, without status epilepticus; I47.1 Supraventricular tachycardia; I25.110 Atherosclerotic heart disease of native coronary artery with unstable angina pectoris; K21.9 Gastro-esophageal reflux disease without esophagitis; E87.6 Hypokalemia; I11.0 Hypertensive heart disease with heart failure; I42.9 Cardiomyopathy, unspecified; E78.5 Hyperlipidemia, unspecified; G89.29 Other chronic pain; I25.810 Atherosclerosis of coronary artery bypass graft(s) without angina pectoris; I35.0 Nonrheumatic aortic (valve) stenosis; Z20.822 Contact with and (suspected) exposure to COVID-19; Y83.1 Surgical operation with implant of artificial internal device as the cause of abnormal reaction of the patient, or of later complication, without mention of misadventure at the time of the procedure; I25.2 Old myocardial infarction; Z79.899 Other long term (current) drug therapy; Z79.82 Long term (current) use of aspirin; Z79.891 Long term (current) use of opiate analgesic; Z95.2 Presence of prosthetic heart valve; Z86.73 Personal history of transient ischemic attack (TIA), and cerebral infarction without residual deficits; Z95.0 Presence of cardiac pacemaker; Z68.27 Body mass index [BMI] 27.0-27.9, adult; Z79.02 Long term (current) use of antithrombotics/antiplatelets; Z83.3 Family history of diabetes mellitus; Z87.891 Personal history of nicotine dependence
CPT/HCPCS: 36415; 36600; 71045; 71250; 76937; 80048; 80053; 82375; 82805; 82962; 83036; 83735; 84100; 84484; 85025; 85027; 85347; 85384; 85576; 86850; 86900; 86920; 87426; 92928; 93005; 93308; 93458; 93880; 94640; 97110; 97116; 97163; 97166; 97530; 97535; A6261; C1725; C1726; C1729; C1751; C1753; C1758; C1760; C1769; C1874 ×2; C1887; C1893; J0690; J1100; J1200; J1644; J1815; J1885; J1940; J2250; J2270; J2370; J2440; J2704; J2720; J3010; J3475; J3480; J3490; J7040; J7050; J7060; L1830; L3908; P9016; P9047; Q0163; Q9967; Q9968

== ENCOUNTER 2023-08-05 20:52 | Inpatient (IN) | payer MEDICARE, OTHER ==
[~2023-08-05] VITALS: Ht 152.4 cm; Wt 55.8 kg
[~2023-08-05 20:52] MED LIST changes: +ALBU4TAB6 MT; +ATOR-2 PO; +CLON0.1T PO; +COR3 PO; +DILT120C51 PO; -GABA-529 PO; -HYDR-4001 PO; +HYDR-4009 PO; -LEVE500T98 PO; -LISI40TA13 PO; +PREG75CA76 PO; +RANO500T6 PO; +SULF1TAB48 MT; +TAMS-11 MT; +VALS320T16 PO
[2023-08-05] MEDS ORDERED: SODIUM CHLORIDE 0.9% 1,000 ML IV ONE (21:15)
[2023-08-05 21:43] LABS: HEMATOCRIT. 27.2 % (36.0-48.0); HEMOGLOBIN. 8.9 g/dL (12.0-16.0); MEAN CORPUSCULAR HEMOGLOBIN 29.1 pg (28.0-32.0); MEAN CORPUSCULAR HGB CONC 32.7 g/dL (31.0-37.0); MEAN PLATELET VOLUME 9.3 fl (7.4-10.4); PLATELET 411 x1000/uL (130-400); RED BLOOD CELL COUNT 3.06 mill/uL (4.2-5.4); RED CELL DISTRIBUTION WIDTH 20.5 % (11.6-14.6); WHITE BLOOD COUNT 5.5 x1000/uL (4.5-11.0)
[2023-08-05 21:45] LABS: DIFFERENTIAL COMMENT 1
[2023-08-05 21:49] LABS: CHLORIDE 95 mEq/L (98-107); INDEX HEMOLYSI 1 (1-3); INDEX ICTERIC 1 (1-4); INDEX LIPEMIC 1 (1-3); POTASSIUM 3.1 mEq/L (3.5-5.1); SODIUM 129 mEq/L (136-145)
[2023-08-05 22:00] LABS: ALANINE AMINOTRANSFERASE 18 IU/L (13-61); ALBUMIN 2.5 g/dL (3.4-5.0); ASPARTATE AMINOTRANSFERASE 67 IU/L (15-37); BILIRUBIN TOTAL 1.4 mg/dL (0.1-1.0); CARBON DIOXIDE 21 mEq/L (21-32); CREATININE 3.2 mg/dL (0.6-1.3); GLUCOSE 99 mg/dL (70-105); TROPONIN I HIGH SENSITIVITY 26 ng/L (<54); UREA NITROGEN BLOOD 65 mg/dL (7-21)
[2023-08-05 22:04] LABS: ANISOCYTOSIS 1+; PLATELET ESTIMATE INCREASED
[2023-08-05] MEDS ORDERED: POTASSIUM CHLORIDE INJ 40 MEQ in DEXT 5% WATER 250 ML IV ONE (22:45)
[2023-08-05] MEDS ORDERED: ALBUMIN HUMAN 25GM/500ML (5%) IV NR (23:00)
[2023-08-05] MEDS ORDERED: MIDODRINE HCL 5MG TABLET PO ONE (23:30)
[2023-08-06] VITALS (52 sets, daily range): BP systolic 79–113; BP diastolic 48–94; PULSE 60–103; RESP 6–27; TEMP 97.6–98.2
[2023-08-06] MEDS: KCL 20MEQ/100ML X 2 FOR TOTAL KCL 40MEQ/200ML IV SCH ×2 (00:27→02:31)
[2023-08-06] MEDS ORDERED: SODIUM CHLORIDE 0.9% 500 ML IV ONE ×2 (00:45→01:30)
[2023-08-06] MEDS ORDERED: CEFTRIAXONE 1GM PREMIX 50 ML IV NR (01:30)
[2023-08-06 01:35] LABS: CLARITY URINE CLOUDY (CLEAR); COLOR URINE DARK YELLOW (YELLOW); GLUCOSE URINE NEGATIVE (NEGATIVE); KETONES URINE NEGATIVE (NEGATIVE); LEUKOCYTE ESTERASE URINE 2+ (NEGATIVE); NITRITE URINE NEGATIVE (NEGATIVE); OCCULT BLOOD URINE NEGATIVE (NEGATIVE); PH URINE 5.5 (4.5-8.0); PROTEIN URINE 1+ (NEGATIVE); SPECIFIC GRAVITY URINE 1.011 (1.005-1.030)
[2023-08-06 01:39] LABS: SQUAMOUS EPITHELIAL CELL URINE NONE SEEN /lpf (RARE/1+)
[2023-08-06 03:48] LABS: RBC URINE 0-2 /hpf (0-2); WBC URINE 15-25 /hpf (0-2)
[2023-08-06 03:49] LABS: BACTERIA URINE NONE SEEN; YEAST URINE NONE SEEN
[2023-08-06] MEDS: NOREPINEPHRINE 8MG/250ML PMX 250 ML IV PRN ×2 (04:26→17:02)
[2023-08-06] MEDS ORDERED: CEFTRIAXONE 1GM PREMIX 50 ML IV SCH (11:45)
[2023-08-06] MEDS ORDERED: ONDANSETRON HCL 4MG/2ML INJ IV PRN (11:45)
[2023-08-06] MEDS ORDERED: ACETAMINOPHEN 325MG TABLET PO PRN (11:45)
[2023-08-06] MEDS ORDERED: FUROSEMIDE 20MG/2ML VIAL IVP NR (12:00)
[2023-08-06] MEDS: SODIUM CHLORIDE 0.9% 1,000 ML IV SCH (12:49)
[2023-08-06] MEDS ORDERED: LIDOCAINE HCL 1% 10 MG/ML 10ML VIAL ONE (12:52)
[2023-08-06] MEDS: MIDODRINE HCL 5MG TABLET PO SCH ×2 (13:31→16:10)
[2023-08-06] MEDS: MEGESTROL ACETATE 400 MG/10 ML UDC PO SCH (13:32)
[2023-08-06] MEDS: HYDROCODONE/ACETAMINOPHEN 5/325MG TABLET PO PRN ×2 (16:11→20:27)
[2023-08-07] VITALS (65 sets, daily range): BP systolic 70–124; BP diastolic 43–104; PULSE 60–129; RESP 6–31; TEMP 97.2–98.1
[2023-08-07] MEDS: SODIUM CHLORIDE 0.9% 1,000 ML IV SCH ×2 (01:05→14:30)
[2023-08-07] MEDS: CEFTRIAXONE 1,000 MG in DEXTROSE 5% WATER 50 ML IV SCH (01:35)
[2023-08-07 05:20] LABS: EOSINOPHILS % 1.4 % (0.0-5.0); HEMOGLOBIN. 8.4 g/dL (12.0-16.0); LYMPHOCYTES % 24.3 % (20.0-50.0); MEAN CORPUSCULAR HEMOGLOBIN 30.7 pg (28.0-32.0); MEAN CORPUSCULAR HGB CONC 33.7 g/dL (31.0-37.0); MEAN PLATELET VOLUME 8.7 fl (7.4-10.4); MONOCYTES % 14.7 % (2.0-8.0); NEUTROPHILS % 58.6 % (40.0-76.0); PLATELET 439 x1000/uL (130-400); RED BLOOD CELL COUNT 2.75 mill/uL (4.2-5.4); RED CELL DISTRIBUTION WIDTH 20.4 % (11.6-14.6); WHITE BLOOD COUNT 5.6 x1000/uL (4.5-11.0)
[2023-08-07 05:30] LABS: CALCIUM 8.1 mg/dL (8.7-10.4); CREATININE 1.5 mg/dL (0.6-1.0); POTASSIUM 3.5 mEq/L (3.5-5.1)
[2023-08-07] MEDS: MIDODRINE HCL 5MG TABLET PO SCH ×3 (08:50→17:12)
[2023-08-07] MEDS: MEGESTROL ACETATE 400 MG/10 ML UDC PO SCH (08:50)
[2023-08-07] MEDS: NOREPINEPHRINE 8MG/250ML PMX 250 ML IV PRN (08:50)
[2023-08-07] MEDS ORDERED: NALOXONE HCL 0.4MG/ML VIAL IV PRN (15:30)
[2023-08-07] MEDS: HYDROCODONE/ACETAMINOPHEN 5/325MG TABLET PO PRN (22:55)
[2023-08-08] VITALS (53 sets, daily range): BP systolic 86–132; BP diastolic 42–96; PULSE 74–103; RESP 7–24; TEMP 97.7–98.4
[2023-08-08] MEDS: CEFTRIAXONE 1,000 MG in DEXTROSE 5% WATER 50 ML IV SCH (00:18)
[2023-08-08] MEDS: SODIUM CHLORIDE 0.9% 1,000 ML IV SCH ×2 (03:45→17:38)
[2023-08-08 05:44] LABS: BASOPHILS % 1.1 % (0.0-2.0); EOSINOPHILS % 1.3 % (0.0-5.0); HEMATOCRIT. 26.6 % (36.0-48.0); HEMOGLOBIN. 8.5 g/dL (12.0-16.0); LYMPHOCYTES % 28.2 % (20.0-50.0); MEAN CORPUSCULAR HEMOGLOBIN 29.5 pg (28.0-32.0); MEAN CORPUSCULAR HGB CONC 32.1 g/dL (31.0-37.0); MEAN CORPUSCULAR VOLUME 92.1 fL (81.0-99.0); MEAN PLATELET VOLUME 8.8 fl (7.4-10.4); MONOCYTES % 13.8 % (2.0-8.0); NEUTROPHILS % 55.6 % (40.0-76.0); PLATELET 400 x1000/uL (130-400); RED BLOOD CELL COUNT 2.89 mill/uL (4.2-5.4); RED CELL DISTRIBUTION WIDTH 20.4 % (11.6-14.6)
[2023-08-08 06:11] LABS: CALCIUM 8.2 mg/dL (8.7-10.4); CARBON DIOXIDE 18 mEq/L (21-32); CHLORIDE 112 mEq/L (98-107); CREATININE 0.9 mg/dL (0.6-1.0); GLUCOSE 80 mg/dL (70-105); SODIUM 142 mEq/L (136-145); UREA NITROGEN BLOOD 32 mg/dL (9-23)
[2023-08-08] MEDS: MIDODRINE HCL 5MG TABLET PO SCH ×3 (09:51→17:38)
[2023-08-08] MEDS: MEGESTROL ACETATE 400 MG/10 ML UDC PO SCH (09:51)
[2023-08-08] MEDS: HYDROCODONE/ACETAMINOPHEN 5/325MG TABLET PO PRN ×3 (09:59→20:03)
[2023-08-09] VITALS (48 sets, daily range): BP systolic 91–122; BP diastolic 67–96; PULSE 91–144; RESP 9–35; TEMP 96.5–98.9; O2SAT 97
[2023-08-09] MEDS: CEFTRIAXONE 1,000 MG in DEXTROSE 5% WATER 50 ML IV SCH (00:23)
[2023-08-09] MEDS: SODIUM CHLORIDE 0.9% 1,000 ML IV SCH (06:26)
[2023-08-09] MEDS: MEGESTROL ACETATE 400 MG/10 ML UDC PO SCH (09:15)
[2023-08-09] MEDS: MIDODRINE HCL 5MG TABLET PO SCH ×3 (09:16→17:34)
[2023-08-09] MEDS: HYDROCODONE/ACETAMINOPHEN 5/325MG TABLET PO PRN (14:24)
[2023-08-09] MEDS ORDERED: LEVO-65 MT (17:26)
== END 2023-08-09 21:30 | disposition home or self-care (01) | DRG 720 ==
LOC: ER 20:52 → EDBEDREQ 08-06 01:24 → CVICU 08-06 01:45 → EDBEDREQSVC 08-06 02:17 → 8WST 08-09 13:45
PROVIDERS: ADMIT Internal Medicine; ATTEND Internal Medicine
PROC: B54MZZA Ultrasonography of Right Upper Extremity Veins, Guidance (ICD-10-PCS; principal; 2023-08-06)
PROC: 05HY33Z Insertion of Infusion Device into Upper Vein, Percutaneous Approach (ICD-10-PCS; 2023-08-06)
DX: A41.9 Sepsis, unspecified organism (principal); N17.0 Acute kidney failure with tubular necrosis; R65.21 Severe sepsis with septic shock; E43 Unspecified severe protein-calorie malnutrition; I50.23 Acute on chronic systolic (congestive) heart failure; E87.1 Hypo-osmolality and hyponatremia; D64.9 Anemia, unspecified; I42.9 Cardiomyopathy, unspecified; I11.0 Hypertensive heart disease with heart failure; E87.6 Hypokalemia; I25.10 Atherosclerotic heart disease of native coronary artery without angina pectoris; N39.0 Urinary tract infection, site not specified; Z85.05 Personal history of malignant neoplasm of liver; Z86.73 Personal history of transient ischemic attack (TIA), and cerebral infarction without residual deficits; Z96.649 Presence of unspecified artificial hip joint; Z95.1 Presence of aortocoronary bypass graft; Z68.24 Body mass index [BMI] 24.0-24.9, adult
CPT/HCPCS: 36415; 36573; 71045; 80048; 80053; 81003; 83605; 84484; 85025; 87340; 93005; 93970; 97110; 97112; 97162; 97166; 97530; 97535; 99285; C1725; J0696; J1940; J3480; J3490; J7030; J7040; J7060; P9041